=== PATIENT | female | born 1990 | race Caucasian/White ===

== ENCOUNTER 2020-07-04 08:12 | Outpatient (REF) | payer MEDICAID, SELFPAY ==
[2020-07-04 09:04] LABS: Hematocrit 38.1 % (37-47); Hemoglobin 12.2 g/dl (12.0-16.0); Mean Corpuscular Hemoglobin 26.9 pg (27.0-33.0); Mean Corpuscular Volume 83.9 fL (80-98); Mean Platelet Volume 10.8 fL (9.4-12.3); Platelet Count 298 X10*3/uL (160-400); Red Blood Count 4.54 X10*6/uL (4.20-5.50); Red Cell Distribution Width 14.7 % (11.0-16.0); White Blood Count 7.9 X10*3/uL (4.8-10.8)
[2020-07-04 09:38] LABS: Alanine Aminotransferase 28 U/L (0-31); Alkaline Phosphatase 90 U/L (39-117); Anion Gap 15 (12-20); Aspartate Amino Transferase 15 U/L (5-31); Bilirubin Total 0.3 mg/dL (0.0-1.0); Blood Urea Nitrogen 12 mg/dL (9-16); Calcium 8.8 mg/dL (8.4-10.2); Carbon Dioxide 26 mmol/L (22-29); Chloride 105 mmol/L (96-108); Cholesterol 137 mg/dL; Estimated Glomerular Filt Rate > 60; Glucose Fasting 106 mg/dL (60-99); HDL Cholesterol 41 mg/dL; LDL Cholesterol Calculated 58 mg/dl; Potassium 4.5 mmol/L (3.3-5.1); Sodium 141 mmol/L (135-145); Total Protein 6.7 g/dL (6.5-8.0); Triglycerides 194 mg/dL
== END 2020-07-04 08:13 | disposition home or self-care (01) ==
LOC: HO.LAB 08:12
PROVIDERS: Visit Provider Family Medicine
DX: R10.9 Unspecified abdominal pain (principal)
CPT/HCPCS: 36415; 80053; 80061; 85027

== ENCOUNTER 2020-07-29 20:31 | Emergency (ER) | payer OTHER, MEDICAID, SELFPAY ==
[2020-07-29 21:09] VITALS: BP 125/87; PULSE 100; RESP 18; TEMP 36.3; O2SAT 99; BMI 40.2
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
== END 2020-07-29 22:12 | disposition home or self-care (01) ==
PROVIDERS: Emergency Provider Emergency Medicine
DX: S13.4XXA Sprain of ligaments of cervical spine, initial encounter (principal); S50.11XA Contusion of right forearm, initial encounter; V43.62XA Car passenger injured in collision with other type car in traffic accident, initial encounter; Y93.89 Activity, other specified; Y92.89 Other specified places as the place of occurrence of the external cause; Y99.8 Other external cause status
CPT/HCPCS: 99283; 99284

== ENCOUNTER 2021-11-27 07:11 | Outpatient (REF) | payer MEDICAID, SELFPAY ==
[2021-11-27 07:25] LABS: MANUAL DIFF FLAG NO
[2021-11-27 07:27] LABS: Basophils Absolute Auto 0.1 X10*3/uL (0.0-0.2); Eosinophils Absolute Auto 0.2 X10*3/uL (0.0-0.4); Eosinophils Percent Auto 2.9 % (0-4); Hematocrit 37.6 % (37.0-47.0); Hemoglobin 12.1 g/dl (12.0-16.0); Imm Gran Abs Auto 0.02 X10*3/uL (0.00-0.03); Imm Gran Pct Auto 0.3 % (0.0-0.4); Lymphocytes Absolute Auto 1.6 X10*3/uL (1.2-4.9); Lymphocytes Percent Auto 22.9 % (20-40); Mean Corpuscular HGB Conc 32.2 g/dl (31.0-35.0); Mean Corpuscular Hemoglobin 26.2 pg (27.0-33.0); Mean Corpuscular Volume 81.4 fL (80.0-98.0); Mean Platelet Volume 10.7 fL (9.4-12.3); Monocytes Absolute Auto 0.6 X10*3/uL (0.1-1.2); Monocytes Percent Auto 8.2 % (2-11); Neutrophils Absolute Auto 4.5 x10*3/uL (2.0-8.3); Neutrophils Percent Auto 64.7 % (45-73); Platelet Count 303 X10*3/uL (160-400); Red Blood Count 4.62 X10*6/uL (4.20-5.50); Red Cell Distribution Width 15.2 % (11.0-16.0); White Blood Count 6.9 X10*3/uL (4.8-10.8)
[2021-11-27 07:48] LABS: Cholesterol 139 mg/dL; HDL Cholesterol 38 mg/dL; LDL Cholesterol Calculated 72 mg/dl; Triglycerides 145 mg/dL
[2021-11-27 08:06] LABS: Erythrocyte Sedimentation Rate 13 MM/HR (0-20)
[2021-11-27 08:11] LABS: TSH reflex Free T4 0.99 uIU/mL (0.32-4.0); Vitamin D 25-OH Total 23.5 ng/mL (>30)
[2021-11-30 04:06] LABS: Immunoglobulin E 145 kU/L (<OR=114)
== END 2021-11-27 07:12 | disposition home or self-care (01) ==
LOC: HO.LAB 07:11
PROVIDERS: PCP Internal Medicine; Visit Provider Internal Medicine
DX: E55.9 Vitamin D deficiency, unspecified (principal); E66.9 Obesity, unspecified; G43.009 Migraine without aura, not intractable, without status migrainosus; Z91.018 Allergy to other foods
CPT/HCPCS: 36415; 80061; 82306; 82785; 84443; 85025; 85652

== ENCOUNTER 2023-02-03 17:44 | Outpatient (REF) | payer MEDICAID, SELFPAY ==
[2023-02-03 18:29] LABS: Influenza A PCR NEGATIVE (Negative); Influenza B PCR NEGATIVE (Negative); Resp Syncy Virus RNA Qual PCR NEGATIVE (Negative); SARS COV2 PCR INHOUSE NEGATIVE (Negative)
== END 2023-02-03 17:45 | disposition home or self-care (01) ==
LOC: HO.LNP 17:44
PROVIDERS: Visit Provider Emergency Medicine
DX: Z11.52 Encounter for screening for COVID-19 (principal); R68.89 Other general symptoms and signs
CPT/HCPCS: 0241U

== ENCOUNTER 2023-08-07 10:34 | Outpatient (REF) | payer MEDICAID, SELFPAY ==
--- NOTE | ~2023-08-07 | XR_ITS ---
EXAMINATION: XR SHOULDER, RIGHT CLINICAL INFORMATION: History of atraumatic right shoulder pain COMPARISON: None available. TECHNIQUE: AP external rotation, Grashey, scapular Y, and axillary views of the right shoulder. FINDINGS: The bones and soft tissues are normal. No fracture. Glenohumeral and acromioclavicular alignment is anatomic with normal joint space. No abnormal soft tissue calcifications. XR/XR shoulder RT min 2V IMPRESSION: Normal right shoulder.
== END 2023-08-07 10:35 | disposition home or self-care (01) ==
LOC: HO.HHCX 10:34
PROVIDERS: Visit Provider Emergency Medicine
DX: M25.511 Pain in right shoulder (principal)
CPT/HCPCS: 36415; 73030; 84550; 86618

== ENCOUNTER 2023-08-07 11:40 | Outpatient (REF) | payer MEDICAID, SELFPAY ==
[2023-08-07 17:01] LABS: Uric Acid 5.8 mg/dL (2.4-5.7)
[2023-08-08 18:03] LABS: Lyme Abs Screen <0.90 index
== END 2023-08-07 11:41 | disposition home or self-care (01) ==
LOC: HO.HHCL 11:40
PROVIDERS: Visit Provider Emergency Medicine
DX: M25.511 Pain in right shoulder (principal)
CPT/HCPCS: 36415; 84550; 86617; 86618

== ENCOUNTER 2023-09-02 17:16 | Emergency (ER) | payer MEDICAID, SELFPAY ==
[2023-09-02 17:21] VITALS: BP 115/67; PULSE 99; RESP 16; TEMP 36; O2SAT 97; BMI 43.4
--- NOTE | 2023-09-02 17:33 | ED.BACK ---
HPI - Back Pain/Injury General Chief Complaint: Back Pain/Injury Stated Complaint: Back pain radiating down leg Time Seen by Provider: 09/02/23 18:30 Source: patient Mode of arrival: ambulatory Limitations: no limitations History of Present Illness ED Provider: Fatoumata Mills PA-C HPI Narrative: 33-year-old Belgian-speaking female with history of obesity, kidney stones who presents to the ER for evaluation of stabbing right-sided middle and lower back pain that started at around 3:00 o'clock today when she went to go from sitting to standing. Pain radiates down the right leg and into the right groin. Worse with movement. No urinary symptoms. No difficulty walking. No numbness or tingling of the leg. MD elicited complaint: back pain Pertinent past history: prior back pain Onset (ago): hour(s) Timing: constant Severity: moderate Similar Symptoms Previously: Yes Quality: stabbing Location: right lower back Radiation: groin and right upper leg Exacerbating factors: movement Relieving factors: sitting upright Context: other (going from sitting to standing) Associated symptoms: denies other symptoms Work related injury: No Related Data Previous Rx's ?Medication ?Instructions ?Recorded cyclobenzaprine 10 mg tablet 10 mg PO TID PRN muscle spasm #10 07/29/20 tabs ibuprofen 800 mg tablet 800 mg PO Q8H PRN pain #15 tabs 07/29/20 lidocaine 5 % topical patch 1 patch topical DAILY #15 ea 07/29/20 (Lidoderm) cyclobenzaprine 10 mg tablet 10 mg PO TID PRN muscle spasm #10 09/02/23 tabs ibuprofen 600 mg tablet 600 mg PO Q8H PRN pain #20 tabs 09/02/23 lidocaine 5 % topical patch 1 patch topical DAILY #15 ea 09/02/23 Allergies Allergy/AdvReac Type Severity Reaction Status Date / Time cetirizine [From [facility]] Allergy Blister Verified 09/02/23 17:28 kiwi Allergy Anaphylaxis Verified 09/02/23 17:28 seafood Allergy Rash Verified 09/02/23 17:28 Review of Systems Review of Systems: Yes all other systems are reviewed and are negative PMFSH Past Medical History Medical History (Updated 09/02/23 @ 18:32 by PETER Charlton) Patient denies significant medical history Social History Social History Advance Directives: No Advance Directives Information Provided: No Physical Exam Vital Signs: Vital Signs: Last Vital Signs Temp 96.8 F 09/02/23 17:21 Pulse 99 09/02/23 17:21 Resp 16 09/02/23 17:21 BP 115/67 09/02/23 17:21 Pulse Ox 97 09/02/23 17:21 O2 Del Method Room Air 09/02/23 17:21 BMI result Body Mass Index 43.4 Appearance: Alert. Oriented X3. No acute distress. HEENT: normal external inspection Neck: Normal inspection. CVS: Normal heart rate and rhythm. Pulses normal. Respiratory: No respiratory distress. Breath sounds normal. Abdomen: Soft and nontender. +BS x4 Back: soft tissue tenderness of the middle lumbar area on the right. no midline tenderness. limited spinal flexion due to pain. Skin: Skin warm and dry. Normal skin color. Normal skin turgor. No rashes. Extremities: No lower extremity edema. No joint swelling. Neuro/psych: Oriented X 3. No motor deficit. No sensory deficit. CN II-XII intact. Normal speech and cognition. Steady gait Medical Decision Making Medical Decision Making [facility] Narrative: 33-year-old Belgian-speaking female with a history kidney stones, back pain in the past, obesity who presents to the ER for evaluation of stabbing back pain on the right side that started acutely this afternoon when she went to go from sitting to standing. It radiates down the right leg into the right groin. No red flag symptoms of low back pain. No urinary symptoms. Urinalysis today is not show any blood, no . She has no UTI symptoms, doubt UTI with only small leuks. Exam is consistent with soft tissue tenderness, no midline tenderness. No need for imaging today. Will treat for musculoskeletal back pain, have her follow-up with her primary care doctor at the [facility] if no improvement. Return precautions discussed. Stable for discharge Differential Diagnosis Differential Diagnoses: The differential diagnosis associated with the presentation includes muscular strain, muscle spasm, herniated disc, UTI, kidney stone Lab Data [facility] Lab Attestation statement: I reviewed the patient's lab results. Labs: Lab Results 09/02/23 09/02/23 Range/Units 17:30 17:31 Urine Color Yellow Urine Appearance Hazy Urine pH 5.5 (5.0-9.0) Ur Specific [place] 1.025 (1.005-1.025) Urine Protein Negative (Neg-Trace) mg/dL Urine Glucose (UA) Negative (Negative) mg/dL Urine Ketones Negative (Negative) mg/dL Urine Blood Negative (Negative) Urine Nitrite Negative (Negative) Ur Leukocyte Esterase Small (1+) H (Negative) Urine RBC 0-2 (0-2) /HPF Urine WBC 0-5 (0-5) /HPF Ur Squamous Epith Cells 6-10 (0-2) /HPF Urine Bacteria 1+ (None Seen) Hyaline Casts 0-2 (0-2) /LPF Urine Test NEGATIVE (NEGATIVE) External Record Review External record reviewed: Outpatient record, Prior outpatient labs and Prior outpatient radiology Tests considered The following testing was considered but not selected: X-rays lumbar spine considered Prescription Management I considered prescription management with: Pain Medication Chronic Conditions Patient?s care impacted by: Other (Morbid obesity) Critical Care Time Critical Care Time Critical Care Time: No Discharge Plan Discharge Clinical Impression: Strain of lumbar region Patient Disposition: Home, Self-Care Instructions: Low Back Strain (ED), Lower Back Exercises (ED) Additional Instructions: Your pain is most likely due to muscle strain and spasm. No bending, lifting or twisting. Use ice several times per day for 20 minutes at a time for the next 48 hours and then change to heat. Take medications as prescribed to help with pain and discomfort. Follow up with your Primary Care Doctor this week. If your pain worsens, if you develop new numbness, tingling, weakness, loss of function or incontinence call 911 or come back to the ER right away for evaluation. Prescriptions: New ibuprofen 600 mg tablet 600 mg PO Q8H PRN (Reason: pain) Qty: 20 0RF cyclobenzaprine 10 mg tablet 10 mg PO TID PRN (Reason: muscle spasm) Qty: 10 0RF lidocaine 5 % adhesive patch,medicated 1 patch topical DAILY Qty: 15 0RF Rx Instructions: leave on most painful area for up to 12 hrs No Action cyclobenzaprine 10 mg tablet 10 mg PO TID PRN (Reason: muscle spasm) Qty: 10 0RF ibuprofen 800 mg tablet 800 mg PO Q8H PRN (Reason: pain) Qty: 15 0RF lidocaine [Lidoderm] 5 % adhesive patch,medicated 1 patch topical DAILY Qty: 15 0RF Rx Instructions: leave on most painful area for up to 12 hrs Print Language: Belgian
[2023-09-02 17:41] LABS: Color Urine Yellow; Glucose Urine UA Negative (Negative); Leukocyte Esterase Urine Small (1+) (Negative); Nitrite Urine Negative (Negative); PH 5.5 (5.0-9.0); Specific Gravity - Urine 1.025 (1.005-1.025); UMIC TRIGGER UACC YES; Urine Blood Negative (Negative); Urine Ketones Negative (Negative); Urine Protein Negative (Neg-Trace)
[2023-09-02 17:42] LABS: Appearance Urine Hazy
[2023-09-02 17:43] LABS: UPreg QC Valid YES; Urine Pregnancy NEGATIVE (NEGATIVE)
[2023-09-02 17:57] LABS: Bacteria Urine 1+ (None Seen); Hyaline Casts Urine 0-2 /LPF (0-2); RBC Urine 0-2 /HPF (0-2); UACC Culture Trigger YES; WBC Urine 0-5 /HPF (0-5)
[2023-09-02 18:32] VITALS: BP 118/76; PULSE 90; RESP 16; TEMP 36.4; O2SAT 100
== END 2023-09-02 18:34 | disposition home or self-care (01) ==
PROVIDERS: Physician Assistant; Emergency Provider Emergency Medicine
DX: S39.012A Strain of muscle, fascia and tendon of lower back, initial encounter (principal); X58.XXXA Exposure to other specified factors, initial encounter; Z87.442 Personal history of urinary calculi; Y93.9 Activity, unspecified; Y92.9 Unspecified place or not applicable; Y99.9 Unspecified external cause status
CPT/HCPCS: 81001; 81025; 87086; 99282; 99283

== ENCOUNTER 2023-09-06 09:30 | Outpatient (AMB) | payer MEDICAID, SELFPAY ==
--- NOTE | 2023-09-06 09:38 | MHC.OFFVIS ---
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 The patient describes her pain as sharp and severe in nature. She did injure her right shoulder approximately 6 months ago while lifting a heavy object. Since that time she has had difficulty lifting her right hand above shoulder height. She has tried Tylenol and anti-inflammatory medicines for the last few months which gave her minimal relief. She has also failed a home exercise program. Her symptoms have gotten worse over the last 6 weeks in spite of continued conservative treatment. 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 Name: Usman(sister) Allergies cetirizine [From [facility]] Allergy (Verified 09/06/23 09:39) Blister kiwi Allergy (Verified 09/06/23 09:39) Anaphylaxis seafood Allergy (Verified 09/06/23 09:39) Rash Medication List - Last Reconciled 09/06/23 by Henri Camacho MD cyclobenzaprine 10 mg PO TID PRN cyclobenzaprine 10 mg PO TID PRN ibuprofen 800 mg PO Q8H PRN ibuprofen 600 mg PO Q8H PRN lidocaine 5% (Lidoderm) 1 patch topical DAILY lidocaine 5% 1 patch topical DAILY PFSH Medical History (Updated 09/06/23 @ 09:54 by Henri Camacho MD) Patient denies significant medical history Physical Exam Const Other: Well-nourished well-developed very friendly female awake alert and oriented x3 in no acute distress Extrem Other: Bilateral upper extremity examination shows good capillary refill, no skin lesions noted, normal sensation light touch Right shoulder examination shows decreased range of motion when compared to her left shoulder, positive impingement signs, 4+ out of 5 strength with supraspinatus testing, tenderness over her acromioclavicular joint, no instability Results Reviewed Results Reviewed: X-rays of the patient's right shoulder show severe acromioclavicular joint narrowing, a type 2 acromion, no acute bony abnormalities Assessment & Plan Assessment & Plan (1) Right shoulder pain: Code(s): M25.511 - Pain in right shoulder Category: Medical Plan Ms. Joe Parker presents with right shoulder pain and weakness due to impingement syndrome and possible rotator cuff tearing. Thus, I will send the patient for an MRI of her right shoulder for further evaluation. I will see her back once the MRI is completed to discuss the findings and treatment options. Feel free to call me at any time should questions regarding her orthopedic management arise. Thank you very much for asking me to see this very friendly patient. I spent 22 minutes in reviewing the patient's records and imaging studies, seeing the patient and documenting in the medical record. Orders: Orders MR shoulder RT wo con 09/06/23 M25.511 - Pain in right shoulder Coding Level of Care Code New Pt Level 3 (95607) Diagnoses Right shoulder pain M25.511
== END 2023-09-06 09:52 | disposition home or self-care (01) ==
PROVIDERS: PCP Internal Medicine; Visit Provider Orthopaedic Surgery
DX: M25.511 Pain in right shoulder (principal)
CPT/HCPCS: 99203

== ENCOUNTER → 2023-09-06 09:30 | Outpatient (BNVA) | payer MEDICAID, SELFPAY | PROVIDERS: PCP Internal Medicine; Visit Provider Orthopaedic Surgery | DX: M25.511 Pain in right shoulder (principal) | CPT/HCPCS: 99202 ==

== ENCOUNTER 2023-11-21 15:13 | Outpatient (AMB) | payer MEDICAID, SELFPAY ==
--- NOTE | 2023-11-21 15:18 | MHC.OFFVIS ---
Vital Signs 11/21/23 15:21 Height 5 ft 1 in Weight 229 lb BMI 43.3 Intake Visit Reasons: MRI review of Rt Shoulder Intake Note: Maria T a 33 year old female who presents with complaints of right shoulder pain. She describes her pain as sharp in nature. Most of the pain is along the lateral and superior aspects of her shoulder. She reports mild weakness when lifting her right hand above shoulder height. She has tried Tylenol and anti-inflammatory medicines which gave her minimal relief. She would like to hold off on surgery if at all possible. Transit Mix Operator Name: Jania ID#[id number] Allergies cetirizine [From [facility]] Allergy (Verified 11/21/23 15:22) Blister kiwi Allergy (Verified 11/21/23 15:22) Anaphylaxis seafood Allergy (Verified 11/21/23 15:22) Rash Medication List - Last Reconciled 11/22/23 by Henri Camacho MD lidocaine 5% 1 patch topical DAILY [facility] Medical History (Updated 11/21/23 @ 15:34 by Henri Camacho MD) Patient denies significant medical history Physical Exam Vital Signs: BMI result Body Mass Index 43.3 Const Other: Well-nourished well-developed very friendly female awake alert and oriented x3 in no acute distress Extrem Other: Bilateral upper extremity examination shows good capillary refill, no skin lesions noted, normal sensation light touch Right shoulder examination shows slightly decreased range of motion when compared to her left shoulder, 4+ out of 5 strength with supraspinatus testing, positive impingement signs, tenderness over her acromioclavicular joint, no instability Results Reviewed Results Reviewed: MRI of the patient's right shoulder show severe acromioclavicular joint narrowing, a type 2 acromion, signal change within the supraspinatus tendon most likely due to rotator cuff tendinosis Assessment & Plan Assessment & Plan (1) Impingement of right shoulder: Code(s): M25.811 - Other specified joint disorders, right shoulder Category: Medical Plan Ms. Joe Parker presents with right shoulder pain due to impingement syndrome and acromioclavicular joint arthritis. I had a lengthy discussion with the patient regarding the treatment options. She wishes to hold off on surgery for as long as possible. I agree with this plan. I did give the patient a prescription to go to formal physical therapy. The do's and don'ts of lifting were discussed at length with the patient. She will follow up with me on an as-needed basis should her symptoms not plateau at an unacceptable level over the next few months. Feel free to call me at any time should questions regarding her orthopedic management arise. I spent 20 minutes in reviewing the patient's records and imaging studies, seeing the patient and documenting in the medical record. Orders: Orders PT Evaluation and Treatment 11/21/23 M25.811 - Other specified joint disorders, right shoulder Coding Level of Care Code Est Pt Level 3 (09485) Complex EM visit Add On G2211 Diagnoses Impingement of right shoulder M25.811
[2023-11-21 15:21] VITALS: BMI 43.3
== END 2023-11-21 15:33 | disposition home or self-care (01) ==
PROVIDERS: PCP Internal Medicine; Referring Provider Internal Medicine; Visit Provider Orthopaedic Surgery
DX: M25.811 Other specified joint disorders, right shoulder (principal)
CPT/HCPCS: 99213

== ENCOUNTER → 2023-11-21 15:13 | Outpatient (BNVA) | payer MEDICAID, SELFPAY | PROVIDERS: PCP Internal Medicine; Visit Provider Orthopaedic Surgery | DX: M25.811 Other specified joint disorders, right shoulder (principal) | CPT/HCPCS: 99212 ==

== ENCOUNTER 2024-01-15 10:00 | Outpatient (RCR) | payer MEDICAID, SELFPAY ==
--- NOTE | 2023-12-07 14:00 | MHC.PT.EP ---
[facility] [place] Office [place] Office [place] Office [address] Heather Carter [address] [phone] F: [phone] F: [phone] F: [phone] F: [phone] Physical Therapy Plan of Care Date of Evaluation: 12/07/23 Date of Surgery: Diagnosis: R shoulder pain Assessment: 33 y/o R-hand dominant female referred to PT with R shoulder pain. MRI shows severe acromioclavicular joint narrowing, a type 2 acromion, signal change within the supraspinatus tendon most likely due to rotator cuff tendinosis. Currently pain and difficulty with reaching, carrying, lifting, grooming, dressing, and sleeping on R side. Examination shows decreased R shoulder strength/ ROM, increased pain, TTP upper trap/ levator/supraspinatus, and impaired postural awareness. Frequency and Duration: The patient will be seen 2x/week for 6 weeks Short Term Goals: 3 weeks I with HEP Improve active flexion to 120 to faciliate grooming [facility] Goals: 6 weeks I with HEP and self management of sx Pt will be able to reach into overhead shelves with pain < 3/10 Pt will be able to dress with pain < 3/10 Treatment Plan: Modalities to reduce pain, spasms and effusion. Manual therapy to restore motion and function. Therapeutic exercise to improve strength and flexibility. Neuromuscular re-education for posture and balance. Therapeutic activities to return to functional activities of daily living. Electronically signed by: Elana Roberson PT Please sign and return to therapist. Thank you for your referral.
--- NOTE | 2024-02-13 13:37 | MHC.PT.DC ---
[facility] [place] Office [place] Office [place] Office [address] Heather Carter [address] [phone] F: [phone] F: [phone] F: [phone] F: [phone] Physical Therapy Discharge Report Diagnosis: R shoulder pain Date of Surgery: Date of Evaluation: 12/07/23 Date of Discharge: 02/13/24 Treatments to Date: 9 Cancellations to Date: 0 No Shows to Date: 0 Discharge Status: Improved Function Independent with HEP Discharge Summary: Pt with decreased pain and improved mobility. At time of last visit, she had no pain with box lifts. She did not f/u with last visit. D/c to I HEP. Electronically signed by: Elana andrew PT Please sign and return to therapist. Thank you for your referral.
== END 2024-02-13 13:37 | disposition home or self-care (01) ==
LOC: HO.PT 10:00
PROVIDERS: Visit Provider Orthopaedic Surgery
DX: M25.811 Other specified joint disorders, right shoulder (principal)
CPT/HCPCS: 97110; 97161; 97530

== ENCOUNTER 2024-01-23 09:38 | Outpatient (AMB) | payer MEDICAID, SELFPAY ==
--- NOTE | 2024-01-23 09:44 | MHC.OFFVIS ---
Vital Signs 01/23/24 09:48 Height 5 ft 1 in Weight 229 lb BMI 43.3 Intake Visit Reasons: Right shoulder pain and weakness Intake Note: Maria T a 33 year old female who presents with complaints of progressively worsening right shoulder pain and weakness. The patient describes her pain as sharp and severe in nature. Most of the pain is along the lateral aspect of her right shoulder. She did injure her right shoulder approximately 1 year ago while lifting a heavy object. The patient's symptoms have gotten worse since her last 2 visits. She has failed the last 6 weeks of conservative treatment. She has been going to formal physical therapy which aggravated her pain. She has also tried Tylenol and anti-inflammatory medicines as well as lidocaine topical patches which gave her minimal relief. Allergies cetirizine [From [facility]] Allergy (Verified 01/23/24 09:50) Blister kiwi Allergy (Verified 01/23/24 09:50) Anaphylaxis seafood Allergy (Verified 01/23/24 09:50) Rash Medication List - Last Reconciled 01/23/24 by Henri Camacho MD lidocaine 5% 1 patch topical DAILY [facility] Medical History (Updated 11/21/23 @ 15:34 by Henri Camacho MD) Patient denies significant medical history Physical Exam Const Other: Well-nourished well-developed very friendly female awake alert and oriented x3 in no acute distress Extrem Other: Bilateral upper extremity examination shows good capillary refill, no skin lesions noted, normal sensation light touch Right shoulder examination shows decreased range of motion when compared to her left shoulder, 4+ out of 5 strength with supraspinatus testing, positive impingement signs, tenderness over her acromioclavicular joint, no instability Results Reviewed Results Reviewed: X-rays of the patient's right shoulder taken previously show severe acromioclavicular joint narrowing, a type 2 acromion, no acute bony abnormalities Assessment & Plan Assessment & Plan (1) Right shoulder pain: Code(s): M25.511 - Pain in right shoulder Category: Medical Plan Maria T presents with progressively worsening right shoulder pain and weakness due to impingement syndrome and possible rotator cuff tearing. I will send the patient for an MRI of her right shoulder for further evaluation. I will see her back once the MRI is completed to discuss the findings and treatment options. Feel free to call me at any time should questions regarding her orthopedic management arise. I spent 20 minutes in reviewing the patient's records and imaging studies, seeing the patient and documenting in the medical record. Orders: Orders MR shoulder RT wo con Today M25.511 - Pain in right shoulder Coding Level of Care Code Est Pt Level 3 (08699) Complex EM visit Add On G2211 Diagnoses Right shoulder pain M25.511
[2024-01-23 09:48] VITALS: BMI 43.3
== END 2024-01-23 09:51 | disposition home or self-care (01) ==
LOC: HO.HOS 09:39
PROVIDERS: PCP Internal Medicine; Visit Provider Orthopaedic Surgery
DX: M25.511 Pain in right shoulder (principal)
CPT/HCPCS: 99213

== ENCOUNTER → 2024-01-23 09:38 | Outpatient (BNVA) | payer MEDICAID, SELFPAY | PROVIDERS: PCP Internal Medicine; Visit Provider Orthopaedic Surgery | DX: M25.511 Pain in right shoulder (principal) | CPT/HCPCS: 99212 ==

== ENCOUNTER 2024-02-13 17:15 | Outpatient (REF) | payer MEDICAID, SELFPAY ==
--- NOTE | ~2024-02-13 | MR_ITS ---
EXAMINATION: MR SHOULDER WITHOUT CONTRAST, RIGHT CLINICAL INFORMATION: Right shoulder pain COMPARISON: Radiograph dated 08/07/2023 TECHNIQUE: MRI of the shoulder without contrast was performed on a high-field scanner. FINDINGS: ROTATOR CUFF: Minimal supraspinatus and subscapularis tendinosis. No tears. No muscle atrophy or fatty infiltration. BICEPS: Normal. CORACOACROMIAL ARCH: The undersurface of the acromion is curved with no subacromial spur. Mild acromioclavicular osteoarthritis. Focal subcortical edema and cystic change distal clavicle is consistent with mild distal clavicular osteolysis. AC joint capsule is thickened and edematous. No subacromial subdeltoid bursitis. LABRUM/CAPSULE: Diminutive posterior labrum is likely due to developmental. Articular sided fraying is suspected at the superior labrum without discrete tear. The anteroinferior glenoid labrum is ill-defined between the anteroinferior 4 o'clock position and 5 o'clock position with loss of labral tissue and fraying, likely correspond to a chronic focal labral tear. GLENOHUMERAL JOINT/MARROW: Articular cartilage appears well preserved. No fracture or malalignment. Bone marrow signal is normal. No joint effusion. MR/MR shoulder RT wo con IMPRESSION: 1. Mild acromioclavicular osteoarthritis with significant periarticular edema and mild distal clavicular osteolysis. 2. Minimal supraspinatus and subscapularis tendinosis. No rotator cuff tears. 3. Probable small focal tear of the anteroinferior glenoid labrum. Electronically signed by: Neftali Martini MD 02/18/2024 11:39 PM [facility]
== END 2024-02-13 17:16 | disposition home or self-care (01) ==
LOC: HO.MRI 17:15
PROVIDERS: PCP Internal Medicine; Visit Provider Orthopaedic Surgery
DX: M25.511 Pain in right shoulder (principal)
CPT/HCPCS: 73221

== ENCOUNTER 2024-03-26 14:25 | Outpatient (AMB) | payer MEDICAID, SELFPAY ==
--- NOTE | 2024-03-26 14:28 | A.OFFVIS_ITS ---
Vital Signs 03/26/24 14:29 Height 5 ft 1 in Weight 229 lb BMI 43.3 Intake Visit Reasons: OV- Right shoulder MRI Review Intake Note: Maria T a 33 year old female who presents with complaints of progressively worsening right shoulder pain and stiffness. The patient describes her pain as sharp and severe in nature. Most of the pain is along the lateral aspect of her right s houlder. She did injure her right shoulder approximately 1 year ago while lifting a heavy object. The patient's symptoms have gotten worse over the last year. She has failed the last 6 weeks of conservative treatment. She has been going to formal physical therapy which aggravated her pain. She has also tried Tylenol and anti-inflammatory medicines as well as lidocaine topical patches which gave her minimal relief. She reports difficulty lifting her right hand above shoulder height. Contract Administration Manager Required: No Allergies cetirizine [From [facility]] Allergy (Verified 03/26/24 14:29) Blister kiwi Allergy (Verified 03/26/24 14:29) Anaphylaxis seafood Allergy (Verified 03/26/24 14:29) Rash Medication List - Last Reconciled 03/26/24 by Henri Camacho MD lidocaine 5% 1 patch topical DAILY FOR[facility]LY [facility] Medical History Patient denies significant medical history Physical Exam Vital Signs: BMI result Body Mass Index 43.3 Const Other: Well-nourished well-developed very friendly female awake alert and oriented x3 in no acute distress Extrem Other: Bilateral upper extremity examination shows good capillary refill, no skin lesions noted, normal sensation light touch Right shoulder examination shows decreased range of motion when compared to her left shoulder, 4+ out of 5 strength with supraspinatus testing, positive impingement signs, tenderness over her acromioclavicular joint, no instability Results Reviewed Results Reviewed: MRI of the patient's right shoulder show severe acromioclavicular joint narrowi ng, a type 3 acromion, signal change within the supraspinatus tendon most likely due to adhesive capsulitis Assessment & Plan Assessment & Plan (1) Impingement of right shoulder: Code(s): M25.811 - Other specified joint disorders, right shoulder Category: Medical Plan Ms. Joe Parker presents with progressively worsening right shoulder pain and stiffness due to impingement syndrome, acromioclavicular joint arthritis and adhesive capsulitis. I had a lengthy discussion with the patient regarding the treatment options. At this point the patient appears to be failing non operative treatments. She is considering undergoing right shoulder surgery later this year. She will contact my office to pick a surgery date if she chooses to do so. Surgery would likely involve right shoulder diagnostic arthro scopy with distal clavicle excision, acromioplasty, capsular release and manipulation under anesthesia. The patient will continue with her [id number] exercises in the meantime. Feel free to call me at any time should questions regarding her orthopedic management arise. I spent 21 minutes in reviewing the patient's records and imaging studies, seeing the patient and documenting in the medical record. Coding Level of Care Code Est Pt Level 3 (12465) Complex EM visit Add On G2211 Diagnoses Impingement of right shoulder M25.811
[2024-03-26 14:29] VITALS: BMI 43.3
== END 2024-03-26 14:55 | disposition home or self-care (01) ==
PROVIDERS: PCP Internal Medicine; Visit Provider Orthopaedic Surgery
DX: M25.811 Other specified joint disorders, right shoulder (principal)
CPT/HCPCS: 99213

== ENCOUNTER → 2024-03-26 14:25 | Outpatient (BNVA) | payer MEDICAID, SELFPAY | PROVIDERS: PCP Internal Medicine; Visit Provider Orthopaedic Surgery | DX: M25.811 Other specified joint disorders, right shoulder (principal) | CPT/HCPCS: 99212 ==

== ENCOUNTER 2024-04-04 12:31 | Outpatient (AMB) | payer MEDICAID, SELFPAY ==
[2024-04-04 12:37] VITALS: BMI 47.0
--- NOTE | 2024-04-04 12:37 | MHC.OFFVIS ---
Vital Signs 04/04/24 12:37 Height 5 ft 1 in Weight 249 lb BMI 47.0 Intake Visit Reasons: cyst on scalp Intake Note: This patient presents for cyst on scalp. Pt co; she feel a lump on her scalp, will like excision, reports discomfort. Control Panel Operator Required: Yes Control Panel Operator Language: Industrial Editor Services: Control Panel Operator Present Control Panel Operator Name: Ligia Information Interpreted: non-clinical & clinical Accompanied by: Spouse Allergies cetirizine [From [facility]] Allergy (Verified 04/04/24 12:45) Blister kiwi Allergy (Verified 04/04/24 12:45) Anaphylaxis seafood Allergy (Verified 04/04/24 12:45) Rash Medication List - Last Reconciled 04/04/24 by Doc Gilbert MD lidocaine 5% 1 patch topical DAILY HPI HPI cyst on scalp: Details: 33 year female referred for a cyst on the scalp. She says she has had this for about 10 years. This has been increasing in size. This has been giving her more discomfort and pain because of the increased in size. She denies any drainage. She denies redness. [facility] Medical History (Updated 04/04/24 @ 13:46 by Doc Gilbert MD) Scalp cyst Morbid obesity Patient denies significant medical history Surgical History No pertinent past surgical history Social History Alcohol intake: never Patient Tobacco Use Status: Never used Tobacco Review of Systems Const Denies chills and Denies fever(s) Card Denies chest pain, Denies dyspnea and Denies dyspnea on exertion Resp Denies cough, Denies dyspnea and Denies dyspnea on exertion GI Denies hematochezia and Denies change in bowel habits Denies hematuria Musc Denies back pain and Denies limited range of motion Neuro Denies focal weakness and Denies convulsions Psych Denies depression and Denies mood swings Physical Exam Vital Signs: BMI result Body Mass Index 47.0 Const Other: Morbidly obese General: comfortable and no acute distress Orientation/consciousness: patient oriented x3 HEENT Other: Scalp cyst on the parietal area, about 2.3 cm in diameter, well-defined Neck Neck: Yes no lymphadenopathy Resp Auscultation: clear to auscultation bilaterally Cardio Rhythm: regular rhythm GI Palpation (GI): Soft to palpation, nontender and no guarding Neuro General: patient oriented x3 Assessment & Plan Assessment & Plan (1) Scalp cyst: Code(s): L72.9 - Follicular cyst of the skin and subcutaneous tissue, unspecified Category: Medical Plan: She wants this excised because of discomfort with increased in size. I explained the technique of excision under local anesthesia. I reviewed the risks including but not limited to bleeding and infections, as well as the benefits and alternatives. I reviewed with her what to expect postoperatively. She has given consent She will be scheduled for excision under local anesthesia in the office on her next visit Coding Level of Care Code New Pt Level 3 (56829) Diagnoses Scalp cyst L72.9
== END 2024-04-04 13:49 | disposition home or self-care (01) ==
PROVIDERS: PCP Internal Medicine; Visit Provider Surgery
DX: L72.9 Follicular cyst of the skin and subcutaneous tissue, unspecified (principal)
CPT/HCPCS: 99203

== ENCOUNTER → 2024-04-04 12:31 | Outpatient (BNVA) | payer MEDICAID, SELFPAY | PROVIDERS: PCP Internal Medicine; Visit Provider Surgery | DX: L72.9 Follicular cyst of the skin and subcutaneous tissue, unspecified (principal) | CPT/HCPCS: 99202 ==

== ENCOUNTER 2024-04-11 14:25 | Outpatient (REF) | payer MEDICAID, SELFPAY ==
--- OUTSIDE RECORDS SUMMARY | 2024-04-11 18:16 | XMS_ITS | Encounter Summary ---
Demographics Address [address] [place] [address] Mobile Phone Home Phone Email Address Preferred Language es Marital Status Single Rastafarian Affiliation Unknown Race White Ethnic Group or Author Organization [employer] Address [address] [place] [address] [address] [place] [address] Support Name Relationship Address Phone Himanshu Small Spouse [address] [place] [address] Care Team Providers Care Road Service Locksmith Name Role Phone Tracy Storey MD Primary Care Provider + Encounter Details Date Type Department Care Team (Late st Contact Info) Description 04/14/2022 Telephone [facility] [address] [place] [address] Tracy Storey MD [address] [place] [address] Social History Tobacco Use Types Packs/Day Years Used Date Smoking Tobacco: Never Assessed Comments Unknown Sex and Gender Information Value Date Recorded Sex Assigned at Female 01/17/2022 10:36 AM EDT Legal Sex Female 10:36 AM EDT Gender Identity Female 01/17/2022 10:36 AM EDT Sexual Orientation Straight 01/17/2022 10 :36 AM EDT documented as of this encounter Plan of Treatment Not on file documented as of this encounter Visit Diagnoses Not on filedocumented in this encounter Care Teams Road Service Locksmith Relationship Specialty Start Date End Date Tracy Storey MD [address] [place], [place] [phone] PCP - General Family Medicine 03/01/19 documented as of this encounter
--- OUTSIDE RECORDS SUMMARY | 2024-04-11 18:16 | XMS_ITS | Encounter Summary ---
Demographics Address [address] [place] [address] Mobile Phone Home Phone Email Address Preferred Language es Marital Status Single Judaism Affiliation Unknown Race White Ethnic Group or Author Organization [employer] Address [address] [place] [address] Support Name Relationship Address Phone Himanshu Small Spouse [address] [place] [address] Care Team Providers Care Geriatric Psychiatrist Name Role Phone Tracy Storey MD Primary Care Provider + Encounter Details Date Type Department Care Team (Late st Contact Info) Description 03/28/2024 Telephone [facility] [address] [place] [address] Tracy Storey MD [address] [place] [address] Social History Tobacco Use Types Packs/Day Years Used Date Smoking Tobacco: Never Smokeless Tobacco: Never Alcohol Use Standard Drinks/Week Comments Never 0 (1 standard drink = 0.6 oz pur e alcohol) Housing Stability Answer Date Recorded What is your housing situation today? I have scott arvizu 12/13/[address] you li ve. Do you have problems with any of the following? None of the above 12/13/2023 Food Insecurity Answer Date Recorded Within the past 12 months, y ou worried that your food would run out before you got money to buy more: Never True 12/13/2023 Within the past 12 months,th e food you bought just didn't last and you didn't have enough money to get more: Never True Transportation Answer Date Recorded In the past 12 months, has l ack of transportation kept you from medical appts, meetings, work or from getting things needed for daily living? No 12/13/2023 Utilities Answer Date Recorded In the past 12 months, has t he electric, gas, oil or water company threatened to shut off services in your home? No 12/13/2023 Internet Access Answer Date Recorded Internet Access Q1 Yes 12/13/2023 Internet Access Q2 Not on file 12/13/2023 Comments Unknown Sex and Gender Information Value [...] on filedocumented in this encounter Care Teams Geriatric Psychiatrist Relationship Specialty Start Date End Date Tracy Storey MD [address] [place] [id number] PCP - General Family Medicine 03/01/19 documented as of this encounter
--- OUTSIDE RECORDS SUMMARY | 2024-04-11 18:16 | XMS_ITS | Encounter Summary ---
Demographics Address [address] [place] [address] Mobile Phone Home Phone Email Address Preferred Language es Marital Status Single Sikhism Affiliation Unknown Race White Ethnic Group or Author Organization [employer] Address [address] [place] [address] [address] [place] [address] Support Name Relationship Address Phone Himanshu Small Spouse [address] [place] [address] Care Team Providers Care Deputy Commonwealth'S Attorney Name Role Phone Tracy Storey MD Primary Care Provider + Reason for Visit * Reason Comments Med Refill Encounter Details Date Type Department Care Team ([facility] st Contact Info) Description 06/28/2022 Refill [facility] [address] [place] [address] Tracy Storey MD [address] [place] [address] Dysfunction of right eustachian tube Social History Tobacco Use Types Packs/Day Years Used Date Smoking Tobacco: Never Smokeless Tobacco: Never Comments Unknown Sex and Gender Information Value Date Recorded Sex Assigned at Female 01/17/2022 10:36 AM EDT Legal Sex Female 10:36 AM EDT Gender Identity Female 01/17/2022 10:36 AM EDT Sexual Orientation Straight 01/17/2022 10 :36 AM EDT COVID-19 Exposure Response Date Recorded In the last 10 days, have yo u been in contact with someone who was confirmed or suspected to have Coronavirus/COVID-19? No / Unsure 2022 11:31 AM EDT documented as of this encounter Plan of Treatment Not on file documented as of this encounter Visit Diagnoses Diagnosis Dysfunction of right eustachian tube documented in this encounter Care Teams Deputy Commonwealth'S Attorney Relationship Specialty Start Date End Date Tracy Storey MD [address] [place] [address] PCP - General Family Medicine 03/01/19 documented as of this encounter
--- OUTSIDE RECORDS SUMMARY | 2024-04-11 18:16 | XMS_ITS | Encounter Summary ---
Demographics Address [address] [place] [address] Mobile Phone Home Phone Email Address Preferred Language es Marital Status Single Jain Affiliation Unknown Race White Ethnic Group or Author Organization [employer] Address [address] [place] [address] Support Name Relationship Address Phone Himanshu Small Spouse [address] [facility] [address] [place] [address] Care Team Providers Care Policy Service Coordinator Name Role Phone Tracy Storey MD Primary Care Provider + Reason for Referral * Consultation (Routine) - Closed Specialty Diagnoses / Procedures Referred By Juan stringer Referred To Contact General Surgery Diagnoses Dermoid cyst of scalp Tracy Storey MD [address] [place] [address] Phone: tel: fax: [facility] General Surgeons [address] Floor [place], [place] Phone: tel: fax: Referral ID Status Reason Start Date Expiration Date V isits Requested Visits Authorized [id number] Closed Specialty Services Required 03/28/2024 03/28/2025 12 12 Encounter Details Date Type Department Care Team (Late st Contact Info) Description 03/27/2024 Orders Only [facility] [address] [place] [address] Tracy Storey MD [address] [place], [place] [phone] Dermoid cyst of scalp (Primary Dx) Social History Tobacco Use Types Packs/Day Years Used Date Smoking Tobacco: Never Smokeless Tobacco: Never Alcohol Use Standard Drinks/Week Comments Never 0 (1 standard drink = 0.6 oz pur e alcohol) Housing Stability Answer Date Recorded What is your housing situation today? I have scott sing 12/13/[address] you li [...] AM EDT documented as of this encounter Progress Notes * Tracy Storey MD - 03/27/2024 3:16 PM EST New referral to gral surgery for scalp cyst sent, see note on 01/16/24 documented in this encounter Plan of Treatment Scheduled Referrals Name Type Priority Associated Diagnoses Orde r Schedule Referral to General Surgery Outpatient Referral Routine Dermoid cyst of scalp Expected: 03/27/2024 (Approximate), Expires: 03/27/2025 documented as of this encounter Visit Diagnoses Diagnosis Dermoid cyst of scalp- Primary Benign neoplasm of scalp and skin of neck documented in this encounter Care Teams Policy Service Coordinator Relationship Specialty Start Date End Date Tracy Storey MD [address] [place] [id number] PCP - General Family Medicine 03/01/19 documented as of this encounter
--- OUTSIDE RECORDS SUMMARY | 2024-04-11 18:16 | XMS_ITS | Encounter Summary ---
Demographics Address [address] [place] [address] Mobile Phone Home Phone Email Address Preferred Language es Marital Status Single Scientologist Affiliation Unknown Race White Ethnic Group or Author Organization [employer] Address [address] [place] [address] Support Name Relationship Address Phone Himanshu Small Spouse [address] [place] [address] Care Team Providers Care Breaker Hand Name Role Phone Tracy Storey MD Primary Care Provider + Encounter Details Date Type Department Care Team (Late st Contact Info) Description 01/03/2024 Orders Only [facility] [address] [place] [address] Anthony Stearns MD [address] [place] [address] Social History Tobacco Use Types Packs/Day Years [...] on filedocumented in this encounter Care Teams Breaker Hand Relationship Specialty Start Date End Date Tracy Storey MD [address] [place] [address] PCP - General Family Medicine 03/01/19 documented as of this encounter
== END 2024-04-11 14:26 | disposition home or self-care (01) ==
LOC: HO.LNP 14:25
PROVIDERS: PCP Internal Medicine; Visit Provider Surgery
DX: L72.11 Pilar cyst (principal)
CPT/HCPCS: 11423; 88304

== ENCOUNTER 2024-04-11 14:25 | Outpatient (AMB) | payer MEDICAID, SELFPAY ==
--- NOTE | 2024-04-11 14:41 | A.OFFVIS_ITS ---
Intake Visit Reasons: Excision Scalp cyst Intake Note: Office procedure: Excision scalp cyst Laborer Stores Required: Yes Laborer Stores Language: [employer] Services: Laborer Stores Present Laborer Stores Name: Ligia Information Interpreted: non-clinical & clinical Accompanied by: Spouse Allergies cetirizine [From [facility]] Allergy (Verified 04/11/24 14:46) Blister kiwi Allergy (Verified 04/11/24 14:46) Anaphylaxis seafood Allergy (Verified 04/11/24 14:46) Rash HPI HPI Excision Scalp cyst: Details: She is here for excision of a scalp cyst. [facility]LY [facility] Medical History Scalp cyst Morbid obesity Patient denies significant medical history Surgical History No pertinent past surgical history Social History Alcohol intake: never Patient Tobacco Use Status: Never used Tobacco Office Procedures Excision Details: She was in reclining position. The area of the cyst on the distal aspect of the scalp was prepped and draped. Lidocaine 1% was used for local anesthesia. I ma de an incision on the skin overlying this cyst with a blade 15. This carried down through the full-thickness of the skin and subcutaneous fat until the cyst capsule was visualized. I sharply dissected the cyst capsule off of the rest of the subcutaneous layer with Metzenbaum scissors until this was delivered. This measured about 2.1 cm. This was sent as a specimen I closed the incision with full-thickness nylon 3-0 simple interrupted sutures. Dressings were applied. The procedure was completed. She tolerated procedure well. There were no immediate complications. She was given wound care instructions. [id number] scalp/neck/hands/feet/genitalia 2.1cm-3cm Procedure code (CPT) selection complete Assessment & Plan Assessment & Plan (1) Scalp cyst: Code(s): L72.9 - Follicular cyst of the skin and subcutaneous tissue, unspecified Category: Medical Plan: Excision was done in the office. She was given wound care instructions and will be seen in the office for removal of sutures. Coding Level of Care Code Procedure Only Diagnoses Scalp cyst L72.9 CPT Codes Scalp/Neck/Hands/Feet/Genetalia - CPT: 72638-Pwqikqsc scalp/neck/hands/feet/genitalia 2.1cm-3cm ([id number])
== END 2024-04-11 15:23 | disposition home or self-care (01) ==
PROVIDERS: PCP Internal Medicine; Visit Provider Surgery
DX: L72.11 Pilar cyst (principal)
CPT/HCPCS: 11423

== ENCOUNTER 2024-04-24 11:13 | Emergency (ER) | payer MEDICAID, SELFPAY ==
--- NOTE | ~2024-04-24 | XR_ITS ---
EXAMINATION: XR CHEST CLINICAL INFORMATION: cough, chest pain COMPARISON: None available. TECHNIQUE: 2 views of the chest were obtained. FINDINGS: The cardiac, hilar, and mediastinal contours are normal. The lungs are clear bilaterally. There is no pneumothorax or pleural effusion. There is no focal osseous or soft tissue abnormality. XR/XR chest 2V IMPRESSION: Normal chest. Electronically signed by: Neftali Jennings MD 04/24/2024 12:35 PM [facility]
[2024-04-24 11:35] VITALS: BP 100/69; PULSE 110; RESP 20; TEMP 36.7; O2SAT 97; BMI 46.1
--- NOTE | 2024-04-24 11:37 | ECG_ITS ---
Test Reason : CHEST PAIN Blood Pressure : */* mmHG Vent. Rate : 112 BPM Atrial Rate : 112 BPM P-R Int : 142 ms QRS Dur : 72 ms QT Int : 310 ms P-R-T Axes : 38 12 5 degrees QTcB Int : 423 ms Sinus tachycardia Otherwise normal ECG No previous ECGs available Referred By: Kelli Hayden Electronically Signed By: Dmitri Cook
--- NOTE | 2024-04-24 11:43 | ED_ITS ---
HPI - URI/Sore Throat General Chief Complaint: Upper Respiratory Symptoms Stated Complaint: congestion, headache Time Seen by Provider: 04/24/24 16:10 Source: patient and pourer (mosotho) Mode of arrival: ambulatory Limitations: language barrier (mosotho) History of Present Illness ED Provider: MIKE HAYDEN PA-C HPI Narrative: 33 year old [place] Islander speaking female presents to the ED today for evaluation of dry cough, right sided chest pain on coughing, headache, sore throat, generalized weakness and left ear pain x2 days. Denies fever, chills. No known sick contacts. Related Data Previous Rx's ?Medication ?Instructions ?Recorded lidocaine 5 % topical patch 1 patch topical DAILY #15 ea 09/02/23 guaifenesin 200 mg tablet 200 mg PO TID PRN cough #10 tabs 04/24/24 ondansetron 4 mg disintegrating 4 mg PO DAILY PRN nausea and 04/24/24 tablet vomiting 5 days #10 tabs Allergies Allergy/AdvReac Type Severity Reaction Status Date / Time cetirizine [From [facility]] Allergy Blister Verified 04/24/24 11:38 kiwi Allergy Anaphylaxis Verified 04/24/24 11:38 seafood Allergy Rash Verified 04/24/24 11:38 Review of Systems 2 Review of Systems: Yes all other systems are reviewed and are negative PMFSH Past Medical History Attestation statement: The following information was validated with the patient. Source: old records reviewed and nursing notes reviewed Medical History Scalp cyst Morbid obesity Patient denies significant medical history Surgical History No pertinent past surgical history Social History Social History Alcohol intake: never Patient Tobacco Use Status: Never used Tobacco Advance Directives: No Advance Directives Information Provided: No Do you have a plan to hurt others: No Plan Physical Exam 2 Vital Signs: Vital Signs: Last Vital Signs Temp 99.6 F 04/24/24 16:12 Pulse 113 H 04/24/24 16:12 Resp 20 04/24/24 16:12 BP 116/75 04/24/24 16:12 Pulse Ox 99 04/24/24 16:12 O2 Del Method Room Air 04/24/24 16:12 BMI result Body Mass Index 46.1 Slightly tachycardic, low grade temp of 99.6F General: Well appearing, in no acute distress. Skin: Warm, dry, intact. No rashes or lesions. Head: Normocephalic, atraumatic. EENT: Hearing is intact b/l. Conjunctiva clear. PERRLA. EOM intact. Moist mucous membranes.? Posterior oropharynx without erythema or edema. No tonsillar exudates. No peritonsillar masses. Uvula midline. Controlling secretions and speaking complete sentences. Bilateral TMs intact without erythema, effusion. No mastoid tenderness. Neck: Supple without LAD Cardiac: Chest wall symmetric. RRR Lungs: Normal respiratory effort without accessory muscle use. CTA bilaterally. No rhonchi or wheezes. Abdomen: Soft, non-tender, non-distended. No rebound tenderness or guarding. Positive BS x4. Ext: Upper and lower extremities atraumatic, without tenderness, deformity, swelling or erythema Neuro: AOx3. Normal speech. Ambulating with steady gait. Psych: Appropriate mood and affect. Responds appropriately to questions. Course Course Course Narrative: This is a Rapid Medical Examination (RME) performed by Mei Hayden PA-C in triage. Full HPI, ROS, assessment and treatment plan per primary provider in the Main ED. 33 yo female here for eval of cough, right sided chest pain, headache, sore throat, generalized weakness, left ear pain. Plan: labs, ekg, viral/strep swabs, cxr Reevaluation(s) Reevaluation #1: Patient tested positive for influenza A. Negative for COVID, RSV, strep throat. CBC without leukocytosis. H and H around baseline. Chemistry without acute electrolyte abnormality requiring intervention. No MITCH. Liver function WNL. Troponin undetectable. Beta HCG undetectable. Not . Chest x-ray does not demonstrate focal consolidation or infiltrate. EKG showing sinus tachycardia at a rate of 112 beats per minute, QT 310, QTC 423, no acute ischemic changes or ST elevations. > discussed all workup results with patient. Educated on symptomatic treatment. Will send Zofran to pharmacy for nausea. Guaifenesin sent for cough. Advised Tylenol/Motrin at home for fevers or body aches. Patient has remained stable throughout ED visit today. Discussed worrisome signs and symptoms and when to return to the ED. All questions answered at this time. Patient is agreeable with disposition and stable for discharge. Medical Decision Making Medical Decision Making [facility] Narrative: 33 year old [place]er speaking female presents to the ED today for evaluation of dry cough, right sided chest pain on coughing, headache, sore throat, generalized weakness and left ear pain x2 days. Patient tachycardic with low- grade fever. vitals otherwise wnl. she is nontoxic appearing and in NAD. on exam, differential diagnosis includes viral syndrome, strep throat, bronchitis, pneumonia, otitis media, otitis externa, costochondritis. 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 Plan for basic labs, trop, EKG, chest x-ray, viral/strep swabs, re-evaluation. Differential Diagnosis Differential Diagnoses: The differential diagnosis associated with the presentation includes as above. Admission/Observation not indicated. Lab Data [facility] Lab Attestation statement: I reviewed the patient's lab results. as above. 04/24/24 12:06 04/24/24 12:06 Labs: Lab Results 04/24/24 Range/Units 12:06 WBC 7.0 (4.8-10.8) X10*3/uL RBC 4.63 (4.20-5.50) X10*6/uL Hgb 12.0 (12.0-16.0) g/dl Hct 36.8 L (37.0-47.0) % MCV 79.5 L (80.0-98.0) fL MCH 25.9 L (27.0-33.0) pg MCHC 32.6 (31.0-35.0) g/dl RDW 15.5 (11.0-16.0) % Plt Count 253 (160-400) X10*3/uL MPV 11.3 (9.4-12.3) fL Immature Gran % (Auto) 0.3 (0.0-0.4) % Neut % (Auto) 83.3 H (45-73) % Lymph % (Auto) 7.5 L (20-40) % [place] % (Auto) 6.2 (2-11) % Eos % (Auto) 1.7 (0-4) % Baso % (Auto) 1.0 (0-2) % Lymph # (Auto) 0.5 L (1.2-4.9) X10*3/uL [place] # (Auto) 0.4 (0.1-1.2) X10*3/uL Eos # (Auto) 0.1 (0.0-0.4) X10*3/uL Baso # (Auto) 0.1 (0.0-0.2) X10*3/uL Abs Immat Gran (auto) 0.02 (0.00-0.03) X10*3/uL Absolute Neuts (auto) 5.8 (2.0-8.3) x10*3/uL Absolute Nucleated RBC 0.000 (0.0-0.012) X10*3/uL Nucleated RBC % (auto) 0.0 (0.0-0.2) /100WBC Sodium 135 (135-145) mmol/L Potassium 3.7 (3.3-5.1) mmol/L Chloride 107 (96-108) mmol/L Carbon Dioxide 21 L (22-29) mmol/L Anion Gap 11 L (12-20) BUN 11 (9-16) mg/dL Creatinine 0.72 (0.5-1.4) mg/dL Estim Creat Clear Calc 125.5 Estimated GFR > 60 Random Glucose 92 (60-115) mg/dL Calcium 8.6 (8.4-10.2) mg/dL Magnesium 1.8 (1.6-2.6) mg/dL Total Bilirubin 0.3 (0.0-1.0) mg/dL AST 22 (5-31) U/L ALT 27 (0-31) U/L Alkaline Phosphatase 95 (39-117) U/L Troponin I High Sens < 2.7 (<3.5-17.0) ng/L Total Protein 7.5 (6.5-8.0) g/dL Albumin 3.9 (3.5-5.0) g/dL Beta HCG, Quant < 2 mIU/mL Influenza Type A (PCR) POSITIVE A (Negative) Influenza Type B (PCR) NEGATIVE (Negative) RSV RNA Qual (PCR) NEGATIVE (Negative) SARS-CoV-2 RNA (RT-PCR) NEGATIVE (Negative) S. pyogenes GrpA YESICA Negative (Negative) Independent Interpretation I performed an independent interpretation of an: Plain X-Ray Interpretation: CXR without infiltrate or consolidation Radiology Impression Discussion of test interpretation with radiology: I have reviewed the radiologist's reading. Radiologist Impression: EXAMINATION: XR CHEST CLINICAL INFORMATION: cough, chest pain COMPARISON: None available. TECHNIQUE: 2 views of the chest were obtained. FINDINGS: The cardiac, hilar, and mediastinal contours are normal. The lungs are clear bilaterally. There is no pneumothorax or pleural effusion. There is no focal osseous or soft tissue abnormality. XR/XR chest 2V IMPRESSION: Normal chest. Electronically signed by: Neftali Jennings MD 04/24/2024 12:35 PM [facility] Independent Historian Clinical information obtained from an independent historian. History obtained from or confirmed by: Spouse External Record Review External record reviewed: Inpatient record Prescription Management I considered prescription management with: Other (Guaifenesin, Zofran) Social Determinants Patient?s care significantly limited by Social Determinants of Health including: Other Social Determinant of Health Critical Care Time Critical Care Time Critical Care Time: No Discharge Plan Discharge Clinical Impression: Influenza A Patient Disposition: Home, Self-Care Instructions: Influenza (ED) Additional Instructions: Today you tested positive for Influenza A. Your blood work is reassuring. Your chest xray and ekg are normal. Take Ibuprofen or Tylenol as needed for fevers or body aches.? Practice social distancing and good hand hygiene. Drink plenty of fluids. Zofran has been sent to your pharmacy for your nausea. Guaifenesin has been sent to your pharmacy for cough. Follow-up with your primary care provider this week. Return to the emergency department with new or worsening symptoms. In case of emergency call 911 Prescriptions: New guaifenesin 200 mg tablet 200 mg PO TID PRN (Reason: cough) Qty: 10 0RF ondansetron 4 mg tablet,disintegrating 4 mg PO DAILY PRN (Reason: nausea and vomiting) 5 Days Qty: 10 0RF No Action lidocaine 5 % adhesive patch,medicated 1 patch topical DAILY Qty: 15 0RF Rx Instructions: leave on most painful area for up to 12 hrs Stand Alone Forms: Work/School Release Interventions: ED Discharge Assessment Last Done: 04/24/24 16:12 Discharge Date/Time: 04/24/24 16:22 Print Language: [place] Islander
[2024-04-24 12:21] LABS: MANUAL DIFF FLAG NO
[2024-04-24 12:26] LABS: Basophils Absolute Auto 0.1 X10*3/uL (0.0-0.2); Eosinophils Absolute Auto 0.1 X10*3/uL (0.0-0.4); Eosinophils Percent Auto 1.7 % (0-4); Hematocrit 36.8 % (37.0-47.0); Imm Gran Abs Auto 0.02 X10*3/uL (0.00-0.03); Imm Gran Pct Auto 0.3 % (0.0-0.4); Lymphocytes Absolute Auto 0.5 X10*3/uL (1.2-4.9); Lymphocytes Percent Auto 7.5 % (20-40); Mean Corpuscular HGB Conc 32.6 g/dl (31.0-35.0); Mean Corpuscular Hemoglobin 25.9 pg (27.0-33.0); Mean Corpuscular Volume 79.5 fL (80.0-98.0); Mean Platelet Volume 11.3 fL (9.4-12.3); Monocytes Absolute Auto 0.4 X10*3/uL (0.1-1.2); Monocytes Percent Auto 6.2 % (2-11); Neutrophils Absolute Auto 5.8 x10*3/uL (2.0-8.3); Neutrophils Percent Auto 83.3 % (45-73); Platelet Count 253 X10*3/uL (160-400); Red Blood Count 4.63 X10*6/uL (4.20-5.50); Red Cell Distribution Width 15.5 % (11.0-16.0)
[2024-04-24 12:30] LABS: IDNOW Serial# 152EDE1D; Strep A Nucleic Acid Negative (Negative)
[2024-04-24 12:55] LABS: Alanine Aminotransferase 27 U/L (0-31); Albumin Level 3.9 g/dL (3.5-5.0); Alkaline Phosphatase 95 U/L (39-117); Anion Gap 11 (12-20); Aspartate Amino Transferase 22 U/L (5-31); Bilirubin Total 0.3 mg/dL (0.0-1.0); Blood Urea Nitrogen 11 mg/dL (9-16); Calcium 8.6 mg/dL (8.4-10.2); Carbon Dioxide 21 mmol/L (22-29); Chloride 107 mmol/L (96-108); Creatinine Clr Calc Pharmacy 125.5; Estimated Glomerular Filt Rate > 60; Glucose Random 92 mg/dL (60-115); HCG Quantitative < 2 mIU/mL; Magnesium 1.8 mg/dL (1.6-2.6); Potassium 3.7 mmol/L (3.3-5.1); Sodium 135 mmol/L (135-145); Total Protein 7.5 g/dL (6.5-8.0); Troponin-I High Sensitivity < 2.7 ng/L (<3.5-17.0)
[2024-04-24 13:00] LABS: Influenza A PCR POSITIVE (Negative); Influenza B PCR NEGATIVE (Negative); Resp Syncy Virus RNA Qual PCR NEGATIVE (Negative); SARS COV2 PCR INHOUSE NEGATIVE (Negative)
[2024-04-24 16:04] VITALS: BP 116/75; PULSE 113; RESP 20; TEMP 37.6; O2SAT 99
[2024-04-24 16:12] VITALS: BP 116/75; PULSE 113; RESP 20; TEMP 37.6; O2SAT 99
--- OUTSIDE RECORDS SUMMARY | 2024-04-24 16:39 | XMS_ITS | Encounter Summary ---
Demographics Address [address] [place] [address] Mobile Phone Home Phone Email Address Preferred Language es Marital Status Single Hoahaoism Affiliation Unknown Race White Ethnic Group or Author Organization [employer] Address [address] [place] [address] Support Name Relationship Address Phone Himanshu Small Spouse [address] [address] [place] [address] Care Team Providers Care Package Handler Name Role Phone Tracy Storey MD Primary Care Provider + Reason for Referral * Consultation (Routine) - Closed Specialty Diagnoses / Procedures Referred By Juan stringer Referred To Contact General Surgery Diagnoses Dermoid cyst of scalp Tracy Storey MD [address] [place] [address] Phone: tel: fax: [facility] [address] [place], [place] Phone: tel: fax: Referral ID Status Reason Start Date Expiration Date V isits Requested Visits Authorized [id number] Closed Specialty Services Required 03/28/2024 03/28/2025 12 12 Encounter Details Date Type Department Care Team (Late st Contact Info) Description 03/27/2024 Orders Only [facility] [address] [place] [address] Tracy Storey MD [address] [place], [place] [phone] Dermoid cyst of scalp (Primary Dx) Social [...] neck documented in this encounter Care Teams Package Handler Relationship Specialty Start Date End Date Tracy Storey MD [address] [place] [id number] PCP - General Family Medicine 03/01/19 documented as of this encounter
--- OUTSIDE RECORDS SUMMARY | 2024-04-24 16:39 | XMS_ITS | Encounter Summary ---
Demographics Address [address] [place] [address] Mobile Phone Home Phone Email Address Preferred Language es Marital Status Single Amish Affiliation Unknown Race White Ethnic Group or Author Organization [employer] Address [address] [place] [address] Support Name Relationship Address Phone Himanshu Small Spouse [address] [place] [address] Care Team Providers Care Developmental Specialist Name Role Phone Tracy Storey MD Primary Care Provider + Encounter Details Date Type Department Care Team (Late st Contact Info) Description 01/03/2024 Orders Only [facility] [address] [place] [address] Anthony Stearns MD [address] [place] [address] Social History Tobacco Use Types Packs/Day Years [...] on filedocumented in this encounter Care Teams Developmental Specialist Relationship Specialty Start Date End Date Tracy Storey MD [address] [place] [id number] PCP - General Family Medicine 03/01/19 documented as of this encounter
--- OUTSIDE RECORDS SUMMARY | 2024-04-24 16:39 | XMS_ITS | Clinical Summary ---
Demographics Address [address] [place] [address] Mobile Phone Home Phone Email Address Preferred Language es Marital Status Single Buddhist Affiliation Unknown Race White Ethnic Group or Author Organization [employer] Address [address] [place] [address] 7[address] [place] [address] Support Name Relationship Address Phone Himanshu Small Spouse [address] [place] [address] Care Team Providers Care Aerial Crop Duster Name Role Phone Tracy Storey MD Primary Care Provider + Allergies Active Allergy Reactions Criticality Noted Date Comments Cetirizine 07/01/2020 Other reaction(s): Hives / Skin Rash Kiwi Extract 05/04/2023 Shellfish Allergy 02/13/2023 Medications fluticasone (Flonase) 50 MCG/ACT nasal sprayIndications :Dysfunction of right eustachian tube SPRAY 1 SPRAY INTO EACH NOSTRIL EVERY MORNING 48 mL 4 Active ibuprofen 400 MG tablet Take 1 tablet (400 mg) by mouth every 8 (eight) hours if needed for moderate pain or fever for up to 30 doses. 30 tablet 4 Active EPINEPHrine (Epipen) 0.3 MG/0.3ML injection syringe Inject 0.3 mL (0.3 mg) as directed 1 (one) time if needed for anaphylaxis. Inject into upper leg. Call 911 after use. 1 each 3 4 09/09/19 25 Active diphenhydrAMINE (BENADryl) 25 MG tablet Take 1 tablet (25 mg) by mouth every 6 (six) hours if needed for itching. 30 tablet 4 Active SUMAtriptan (Imitrex) 25 MG tabletIndication s:Migraine without status migrainosus, not intractable, unspecified migraine type Take 1 tablet by mouth at onset of migraine; may repeat after 2 hours if headache returns; do not exceed 200mg in 24 hours 9 tablet 11 4 Active loratadine (Claritin) 10 MG tablet Take 1 tablet (10 mg) by mouth Once per day. 30 tablet 11 4 09/09/19 25 Active lidocaine (Lidoderm) 5 % patch APPLY 1 PATCH TOPICALLY ONCE PER DAY. REMOVE AND DISCARD PATCH WITHIN 12 HOURS as DIRECTED BY MD. 30 patch 2 4 Active acetaminophen (Tylenol) 500 MG tablet Take 1 tablet (500 mg) by mouth every 6 (six) hours if needed for mild pain or moderate pain for up to 100 doses. 100 tablet 4 Active cyclobenzaprine (Flexeril) 10 MG tablet Take 1 tablet (10 mg) by mouth if needed in the morning and at bedtime for muscle spasms for up to 10 days. 20 tablet 4 Active Active Problems Problem Noted Date Diagnosed Date Acute right-sided low back pain without sciatica 01/16/2024 Assessment & Plan (01/16/2024 7:37 PM EDT): Recommended heat to affected area and apply Diclofenac xxx BID. Take Tylenol plus Cyclobenzaprine prn. Recommended stretching exercises and gave her information. Re consult prn. Dermoid cyst of scalp 01/16/2024 Assessment & Plan (01/16/2024 7:38 PM EDT): Refer to surgery for excision. Strep pharyngitis 12/20/2023 Assessment & Plan (12/20/2023 10:59 AM EDT): -rapid strep positive -amoxicillin 500mg bid for 10 days -droplet precautions discussed -supportive care discussed -ER precautions given Necrosis of dental pulp 07/31/2023 Severe dental caries 07/31/2023 Periodontal disease 07/10/2023 Dental calculus 07/10/2023 Multiple food allergies 2022 Assessment & Plan (09/09/2023 10:51 AM EDT): Will refer to a new director risk as patient was not given another appt, needs allergy testing. Refill for loratadine, benadryl and Epipen sent to pharmacy Assessment & Plan (2022 1:50 PM EDT): Pt needs to be referred to allergiest for testing, especially given high IGE levels. Continue Flavia daily and Benadryl PRN, pt also carries epi pen Dysfunction of right eustachian tube 2022 Assessment & Plan (2022 1:50 PM EDT): On right ear most likely related to allergies as well. Continue Flavia and use Flonase PRN ear fullness or itchiness Migraine without status migrainosus, not intract able 2022 Acute frontal sinusitis 05/13/2022 Hand pain 05/13/2022 Obesity (BMI 30-39.9) 05/13/2022 Seborrheic dermatitis of scalp 05/13/2022 Teratoma of ovary 05/13/2022 Vitamin D deficiency 05/13/2022 Encounters Date Type Department Care Team Description 04/11/2024 Orders Only GENERIC EXTERNAL DATA DEPARTMENT Provider, [facility] External Data 03/28/2024 Telephone [facility] [address] [place] [address] Tracy Storey MD 03/27/2024 Orders Only [facility] [address] [place] [address] Tracy Storey MD Dermoid cyst of scalp (Primary Dx) 02/13/2024 Orders Only [facility] External Provider, [facility] from Last 3 Months Social History Tobacco Use Types Packs/Day Years Used Date Smoking Tobacco: Never Smokeless Tobacco: Never Tobacco Cessation:Counseling Given: Not Answered Alcohol Use Standard Drinks/Week Comments Never 0 [...] Orientation Straight 01/17/2022 10 :36 AM EDT Last Filed Vital Signs Vital Sign Reading Time Taken Comments Blood Pressure 115/70 01/16/2024 3:10 PM EDT Pulse 93 01/16/2024 3:10 PM EDT Temperature 36.2 ??C (97.2 ??F) 01/16/2024 3:10 PM ED T Respiratory Rate 24 01/16/2024 3:10 PM EDT Oxygen Saturation 100% 01/16/2024 3:10 PM EDT Inhaled Oxygen Concentration - - Weight 112 kg (247 lb 6 oz) 01/16/2024 3:10 PM E DT Height 154.9 cm (5' 1 ) 01/16/2024 3:10 PM EDT Body Mass Index 46.74 01/16/2024 3:10 PM EDT Plan of Treatment Health Maintenance Due Date Last Done Comments Depression Screening 1990 HIV Screening 1990 Alcohol/Substance Use Screening 2000 Family Planning (PISQ) 06/18/2003 Hepatitis C Screening 2006 DTaP/Tdap/Td Vaccines (1 - Tdap) 06/18/2007 Hepatitis B Vaccines (1 of 3 - 19+ 3-dose series) 06/18/2007 Dental Oral Exam 11/03/2023 05/04/2023 COVID-19 Vaccine ( - 2023-2 5 season) 2023 10/31/2020, 10/01/2020 Influenza Vaccine (#1) 2023 Dental Prophylaxis 01/10/2024 07/10/2023 Dental X-Ray: Bitewings 05/05/2024 05/04/2023 SDOH Screening 12/12/2024 12/13/2023 Pap Smear 12/20/2024 12/20/2021 Tobacco Screening 01/15/2025 01/16/2024 Dental X-Ray: Full Mouth 07/31/2026 024, 05/04/2023, 02/13/2023 Lipid Panel 11/27/2026 11/27/2021, 07/04/2020 Cervical Cancer Screening 12/20/2026 HPV/Cotest 12/20/2026 12/20/2021 Zoster Vaccines (1 of 2) 2038 RSV Patients and Patients Aged 60 years or older (1 - 1-dose 75+ series) 06/18/2063 HIB Vaccines Aged Out No longer eligi ble based on patient's age to complete this topic HPV Vaccines Aged Out No longer eligi ble based on patient's age to complete this topic Hepatitis A Vaccines Aged Out No long er eligible based on patient's age to complete this topic IPV Vaccines Aged Out No longer eligi ble based on patient's age to complete this topic Meningococcal Vaccine Aged Out No sy sharon eligible based on patient's age to complete this topic Pneumococcal Vaccine: Pediatrics (0 to 5 Years) and At-Risk Patients (6 to 49) Years) Aged Out No longer eligible b ased on patient's age to complete this topic RSV under 20 months Aged Out No longe r eligible based on patient's age to complete this topic Rotavirus Vaccines Aged Out No longer eligible based on patient's age to complete this topic Procedures Procedure Name Priority Date/Time Associated Diagnosis Comments GROSS AND MICROSCOPIC LEVEL 3 Routine 04/11/2024 3:00 PM EST MR SHOULDER WO CONTRAST RIGHT Routine 02/13/2024 5:32 PM EST PANORAMIC RADIOGRAPHIC IMAGE Routine 07/31/2023 9:00 AM EDT PROPHYLAXIS - ADULT Routine 07/10/2023 1 0:00 AM EDT Periodontal disease Dental calculus DIAGNOSTIC - DIAGNOSTIC IMAGING - INTRAORAL - COMPREHENSIVE SERIES OF RADIOGRAPHIC IMAGES Routine 05/04/2023 10:30 AM EST COMPREHENSIVE ORAL EVALUATION - NEW OR ESTABLISHED PATIENT Routine 05/04/2023 10:30 AM EST THINPREP IMAGING PAP AND HPV MRNA E6/E7, WITH CT/NG, TRICHOMONAS Routine 12/20/2021 12:00 AM EDT [facility] HISTORICAL LIPID PANEL Routine 11/27/2021 7:24 AM EDT from Last 3 Months or Most Recently Relevant to Health Maintenance Results * Gross and Microscopic Level 3 (04/11/2024 3:00 PM EST) 04/11/2024 3:00 PM EST 04/12/2024 7:10 AM EST [facility] - 04/15/2024 10:17 AM EST ----- ------- Name: Maria T Mayes ? Age/Sex: 33/F ? : 1990 Unit#: [id number] ?? Attend Dr: Doc Gilbert MD ?Re04/11/24 ?Status: DEP REF ? Location: HO.LNP ?Disch: ? ----- ------- SPEC : [id number] ?RECD: 04/12/24 ? STATUS: ??SOUT ? REQ NUM: [id number] ? OK: 04/11/24-1500 ? SUBM DR: Doc Gilbret MD ? ENTERED: ??04/12/24 ?SP TYPE: Surgical ? OTHR DR: Tracy Storey MD ? ORDERED: ??Gross Micro L3 ? Diagnosis ?? Scalp, left vertex cyst, excision: ??Trichilemmal (pilar) cyst with calcification. ?Clinical History Pilar cyst ?Microscopic Description Microscopic sections reviewed. ? Material Received ?? Left vertex scalp pilar cyst ? Gross Description Received in formalin labeled ?left vertex scalp-pilar cysts (3 pieces)? are fragments of martinez white, firm cyst wall and cyst contents forming in aggregate that measures 2.5 x 2.0 x 1.1 cm in greatest dimension. ??The cyst wall fragments measure of 0.2 cm in greatest thickness. ??The cyst contents are magaña-white and firm. ??Multineedle Shirrer sections are submitted for microscopic examination, 4 pieces in cassette A. [facility] Copies To: ?? Tracy Storey MD ?? [facility] ?? [address] ?? [place] [address] ?? [phone] ?? Doc Gilbert MD ?? [facility] ?? [address] ?? [place] [address] ?? [phone] ----- ------- Signed (signature on file) Rizwana Suzi 04/15/24 1017 ? ----- ------- ? END OF REPORT ? us Generic External Data Provider LAB CYTOLOGY LUZ ELENA ORTEGA Final Result [facility] [address] [place] [address] [place] [address] [phone] * MR Shoulder w/o Contrast Right (02/13/2024 5:32 PM EST) Anatomical Region Laterality Modality Upper Extremities, Shoulder Right Magn etic Resonance 02/13/2024 5:32 PM EST Narrative 02/18/2024 11:43 PM EST ? [facility] ?[address] ?[place] [address] ? Magnetic Resonance Report ? Signed ? Patient: Joe Parker,Maria T E ?MR# ?? : [id number] ? : 1990 ?Acct:[id number] ? Age/Sex: 33 / F ?ADM Date: 11/26/24 ? Loc: HO.MRI ? Attending Dr: Henri Camacho MD ? Ordering Physician: Henri Camacho MD ?? Date of Service: 02/13/24 ?? Procedure(s): MR shoulder RT wo con ?? Accession Number(s): [id number] ? cc: Tracy Storey MD; Henri Camacho MD ? EXAMINATION: ?? MR SHOULDER WITHOUT CONTRAST, RIGHT ? CLINICAL INFORMATION: ?? Right shoulder pain ? COMPARISON: ?? Radiograph dated 08/07/2023 ? TECHNIQUE: ?? MRI of the shoulder without contrast was performed on a high-field ?? scanner. ? FINDINGS: ?? ROTATOR CUFF: Minimal supraspinatus and subscapularis tendinosis. No ?? tears. No muscle atrophy or fatty infiltration. ? BICEPS: Normal. ? CORACOACROMIAL ARCH: The undersurface of the acromion is curved with no ?? subacromial spur. Mild acromioclavicular osteoarthritis. Focal ?? subcortical edema and cystic change distal clavicle is consistent with ?? mild distal clavicular osteolysis. AC joint capsule is thickened and ?? edematous. No subacromial subdeltoid bursitis. ? LABRUM/CAPSULE: Diminutive posterior labrum is likely due to ?? developmental. Articular sided fraying is suspected at the superior ?? labrum without discrete tear. The anteroinferior glenoid labrum is ?? ill-defined between the anteroinferior 4 o'clock position and 5 o'clock ?? position with loss of labral tissue and fraying, likely correspond to a ?? chronic focal labral tear. ? GLENOHUMERAL JOINT/MARROW: Articular cartilage appears well preserved. ?? No fracture or malalignment. Bone marrow signal is normal. No joint ?? effusion. ? MR/MR shoulder RT wo con ?? IMPRESSION: ?? 1. ??Mild acromioclavicular osteoarthritis with significant ?? periarticular edema and mild distal clavicular osteolysis. ?? 2. ??Minimal supraspinatus and subscapularis tendinosis. No rotator cuff ?? tears. ?? 3. ??Probable small focal tear of the anteroinferior glenoid labrum. ? Electronically signed by: ??Neftali Martini MD ??02/18/2024 11:39 PM EST RP ? Dictated By: ?Neftali Martini MD ? Signed By: ?<Electronically signed by Neftali Martini MD in OV> ? 02/18/242338 ? DD/ ? TD/TT: 02/13/24 1749 ? Executive Staff Assistant: SABRINA ? Procedure Note Donsushila, Sabrina - 02/18/[address] [address] Magnetic Resonance Report Signed Patient: Maria T Mayes EMR# : [id number] : 1990Acct:[id number] Age/Sex: 33 / FADM Date: 02/13/24 Loc: HO.MRI Attending Dr: Henri Camacho MD Ordering Physician: Henri Camacho MD Date of Service: 02/13/24 Procedure(s): MR shoulder RT wo con Accession Number(s): [id number] cc: Tracy Storey MD; Henri Camacho MD EXAMINATION: MR SHOULDER WITHOUT CONTRAST, RIGHT CLINICAL INFORMATION: Right shoulder pain COMPARISON: Radiograph dated 08/07/2023 TECHNIQUE: MRI of the shoulder without contrast was performed on a high-field scanner. FINDINGS: ROTATOR CUFF: Minimal supraspinatus and subscapularis tendinosis. No tears. No muscle atrophy or fatty infiltration. BICEPS: Normal. CORACOACROMIAL ARCH: The undersurface of the acromion is curved with no subacromial spur. Mild acromioclavicular osteoarthritis. Focal subcortical edema and cystic change distal clavicle is consistent with mild distal clavicular osteolysis. AC joint capsule is thickened and edematous. No subacromial subdeltoid bursitis. LABRUM/CAPSULE: Diminutive posterior labrum is likely due to developmental. Articular sided fraying is suspected at the superior labrum without discrete tear. The anteroinferior glenoid labrum is ill-defined between the anteroinferior 4 o'clock position and 5 o'clock position with loss of labral tissue and fraying, likely correspond to a chronic focal labral tear. GLENOHUMERAL JOINT/MARROW: Articular cartilage appears well preserved. No fracture or malalignment. Bone marrow signal is normal. No joint effusion. MR/MR shoulder RT wo con IMPRESSION: 1. Mild acromioclavicular osteoarthritis with significant periarticular edema and mild distal clavicular osteolysis. 2. Minimal supraspinatus and subscapularis tendinosis. No rotator cuff tears. 3. Probable small focal tear of the anteroinferior glenoid labrum. Electronically signed by: Neftali Martini MD 02/18/2024 11:39 PM EST Dictated By: Neftali Martini MD Signed By: <Electronically signed by Neftali Martini MD in OV> 02/18/24 2738 DD/ 31 TD/TT: 02/13/24 174 Executive Staff Assistant: SABRINA [facility] External Provider IMG MRI PROCEDURES Edited Result - Final * THINPREP TIS PAP AND HPV mRNA E6/E7, CT/NG, TRICH (12/20/2021 12:00 AM EDT) Chlamydia trachomatis RNA, TMA, Urogenital NOT DETECTED NOT DETECTED [facility] Clinical Information: None given [facility]VERTED [facility] COMMENT SEE COMMENT LIZETTE Alejandro [facility] Comment: The analytical performance characteristics of this assay, when used to test SurePath(TM) specimens have been determined by [employer]. The modifications have not been cleared or approved by the FDA. This assay has been validated pursuant to the CLIA regulations and is used for clinical purposes. ?? For additional information, please refer to https://education.[employer]/faq/YFL131 (This link is being provided for information/ educational purposes only.) ?? COMMENT SEE COMMENT LIZETTE Alejandro [facility] Comment: EXPLANATORY NOTE: ? The Pap is a screening test for cervical cancer. It is ?? not a diagnostic test and is subject to false negative ?? and false positive results. It is most reliable when a ?? satisfactory sample, regularly obtained, is submitted ?? with relevant clinical findings and history, and when ?? the Pap result is evaluated along with historic and ?? current clinical information. ?? COMMENT: SEE COMMENT CONVER[facility] D [facility] Comment: This case could not be evaluated with computer assisted technology. The slide was manually screened according to routine procedures. Tape Machine Tailer: SEE COMMENT [facility] Comment: MANSI, CT(ASCP) CT screening location: [address] ??[address] HPV nRNA E6/E7 Not Detected Not Detected [facility] Comment: Methodology: Occupational Therapist Assistant-Mediated Amplification This assay detects E6/E7 viral messenger RNA (mRNA) from 14 high-risk HPV types (16,18,31,33,35,39,45,51,52,56,58,59,66,68). ? Cervical sources are required for HPV testing. If a vaginal source from a patient who has had a total hysterectomy with removal of cervix was ?? submitted, please contact the testing laboratory for alternative testing options. ?? For additional information, please refer to http://[employer]/faq/PSJ027n9 (This link if provided for information/ educational purposes only.) Interpretation/Re sult: Negative for intraepithelial lesion or malignancy. [facility] LMP: NONE GIVEN [facility] Neisseria gonorrhoeae RNA, TMA, Urogenital NOT DETECTED NOT DETECTED [facility] Prev. BX: NONE GIVEN [facility] Prev. PAP: NONE GIVEN [facility]VER[facility] D [facility] SOURCE: None given [facility]ED [facility] Statement Of Adequacy: SEE COMMENT [facility] Comment: Satisfactory for evaluation. Endocervical/transformation zone component present. Age and/or menstrual status not provided Trichomonas vaginalis, QL, TMA, PAP Vial NOT DETECTED NOT DETECTED [facility] Comment: The analytical performance characteristics of this assay have been determined by [facility]. The modifications have not been cleared or approved by the FDA. This assay has been validated pursuant to the CLIA regulations and is used for clinical purposes. ?? For additional information, please refer to http://education.Syl[employer]/ faq/Trichomonastma (This link is being provided for information/ educational purposes only.) ?? 12/20/2021 Tracy Storey MD LAB PATHOLOGY ORDERABLES Final Result Performing Organization Address [facility]/ZIP Co de Phone Number CONVERTED [facility]GACY [facility] * LIPID PANEL (11/27/2021 7:24 AM EDT) Cholesterol 139 mg/dL [facility] Comment: Desirable Cholesterol: ?less than 200 mg/dL Borderline High Cholesterol: ??200-239 mg/dL High Cholesterol: ? greater than 239 mg/dL HDL Cholesterol 38 mg/dL [facility] Comment: Desirable HDL: ??greater than 40 mg/dL ?? Note: This HDL assay may give artificially ? low results in patients with liver disease. LDL Cholesterol Calculated 72 mg/dl [facility] Comment: Desirable LDL: ? less than 100 mg/dL Near Optimal/Above Optimal LDL: ??110-129 mg/dL Borderline High LDL: ? 130-159 mg/dL High LDL: ?160-189 mg/dL Very High LDL: ? greater than or equal to ?190 mg/dL Triglycerides 145 mg/dL [facility] Comment: Desirable Triglyceride: ? less than 150 mg/dL Borderline High Triglyceride ??150-199 mg/dL High Triglyceride: ?200-499 mg/dL Very High Triglyceride: ? greater than or equal to ? 5OO mg/dL 11/27/2021 7:24 AM EDT Tracy Storey MD HISTORICAL/NON ORDERABLE LABS Final Result [facility] [address] from Last 3 Months or Most Recently Relevant to Health Maintenance Insurance * Guarantor: Maria T Mayes Account Type Relation to Patient Date of Phone Billing Address Personal/Family Self [address] [place] [address] [place] [address] [facility] MEDICA[facility] STAND ADULT * Guarantor: Maria T Mayes Account Type Relation to Patient Date of Phone Billing Address Personal/Family Self [address] [place] [address] * Guarantor: Maria T Mayes Account Type Relation to Patient Date of Phone Billing Address Personal/Family Self [address] [place] [address] * Guarantor: Maria T Mayes Account Type Relation to Patient Date of Phone Billing Address Personal/Family Self [address] [place] [address] Care Teams Aerial Crop Duster Relationship Specialty Start Date End Date Tracy Storey MD [address] [place] [id number] PCP - General Family Medicine 03/01/19
--- OUTSIDE RECORDS SUMMARY | 2024-04-24 16:40 | XMS_ITS | Encounter Summary ---
Demographics Address [address] [place] [address] Mobile Phone Home Phone Email Address Preferred Language es Marital Status Single Yarsanism Affiliation Unknown Race White Ethnic Group or Author Organization [email or web address] Address [address] [place] [address] [address] [place] [address] Support Name Relationship Address Phone Himanshu Small Spouse [address] [place] [address] Care Team Providers Care Drawer Waxer Name Role Phone Tracy Storey MD Primary Care Provider + Reason for Visit * Reason Comments Med Refill Encounter Details Date Type Department Care Team ([facility] st Contact Info) Description 06/28/2022 Refill [facility] [address] [place] [address] Tracy Storey MD [address] [place] [address] Dysfunction of right eustachian tube Social History [...] tube documented in this encounter Care Teams Drawer Waxer Relationship Specialty Start Date End Date Tracy Storey MD [address] [place] [address] PCP - General Family Medicine 03/01/19 documented as of this encounter
--- OUTSIDE RECORDS SUMMARY | 2024-04-24 16:40 | XMS_ITS | Encounter Summary ---
Demographics Address [address] [place] [address] Mobile Phone Home Phone Email Address [employer] Preferred Language es Marital Status Single Jainism Affiliation Unknown Race White Ethnic Group or Author Organization [employer] Address [address] [place] [address] [address] [place] [address] Support Name Relationship Address Phone Himanshu Small Spouse [address] [place] [address] Care Team Providers Care Stemmer Machine Name Role Phone Tracy Storey MD Primary Care Provider + Encounter Details Date Type Department Care Team (Late st Contact Info) Description 04/14/2022 Telephone [facility] [address] [place] [address] Tracy Storey MD [address] [place] [address] Social History Tobacco Use Types Packs/Day Years [...] on filedocumented in this encounter Care Teams Stemmer Machine Relationship Specialty Start Date End Date Tracy Storey MD [address] [place], [place] [phone] PCP - General Family Medicine 03/01/19 documented as of this encounter
--- OUTSIDE RECORDS SUMMARY | 2024-04-24 16:40 | XMS_ITS | Encounter Summary ---
Demographics Address [address] [place] [address] Mobile Phone Home Phone Email Address Preferred Language es Marital Status Single Protestant Affiliation Unknown Race White Ethnic Group or Author Organization [employer] Address [address] [place] [address] Support Name Relationship Address Phone Himanshu Small Spouse [address] [place] [address] Care Team Providers Care Icing Machine Operator Name Role Phone Tracy Storey MD Primary Care Provider + Encounter Details Date Type Department Care Team (Late st Contact Info) Description 04/11/2024 Orders Only GENERIC EXTERNAL DATA DEPARTMENT Provider, Generic External Data Social History Tobacco Use Types Packs/Day Years Used Date Smoking Tobacco: Never Smokeless Tobacco: Never Alcohol Use Standard Drinks/Week Comments Never 0 (1 standard drink = 0.6 oz pur e alcohol) Housing Stability Answer Date Recorded What is your housing situation today? I have scott luh 12/13/[address] you li [...] on file documented as of this encounter Procedures Procedure Name Priority Date/Time Associated Diagnosis Comments GROSS AND MICROSCOPIC LEVEL 3 Routine 04/11/2024 3:00 PM EST documented in this encounter Results * Gross and Microscopic Level 3 (04/11/2024 3:00 PM EST) 04/11/2024 3:00 PM EST 04/12/2024 7:10 AM EST [facility]S - 04/15/2024 10:17 AM EST ----- ------- Name: Maria T Mayes ? Age/Sex: 33/F ? : 1990 Unit#: [id number] ?? Attend Dr: Doc Gilbert MD ?Re04/11/24 ?Status: DEP REF ? Location: HO.LNP ?Disch: ? ----- ------- SPEC : [id number] ?RECD: 04/12/24 ? STATUS: ??SOUT ? REQ NUM: [id number] ? OK: 04/11/24-1500 ? SUBM DR: Doc Gilbert MD ? ENTERED: ??04/12/24 ?SP TYPE: Surgical [...] ??The cyst contents are magaña-white and firm. ??Chart Snatcher sections are submitted for microscopic examination, 4 pieces in cassette [facility] Copies To: ?? Tracy Storey MD ?? [facility] ?? [address] ?? [place] [address] ?? [phone] ?? Doc Gilbert MD ?? [facility] ?? [address] ?? [place] [address] ?? [phone] ----- ------- Signed (signature on file) Rizwana Archer 04/15/24 1017 ? ----- ------- ? END OF REPORT ? us Generic External Data Provider LAB CYTOLOGY ORDE SHANNON Final Result [facility] [address] [place] [address] [phone] documented in this encounter Visit Diagnoses Not on filedocumented in this encounter Care Teams Icing Machine Operator Relationship Specialty Start Date End Date Tracy Storey MD [address] [place] [address] PCP - General Family Medicine 03/01/19 documented as of this encounter
--- OUTSIDE RECORDS SUMMARY | 2024-04-24 16:40 | XMS_ITS | Encounter Summary ---
Demographics Address [address] [facility] [address] [place] [address] Mobile Phone Home Phone Email Address Preferred Language es Marital Status Single Restorationism Affiliation Unknown Race White Ethnic Group or Author Organization [employer] Address [address] [place] [address] Support Name Relationship Address Phone Himanshu Small Spouse [address] [place] [address] Care Team Providers Care Rehabilitation Therapy Technician Name Role Phone Tracy Storey MD Primary Care Provider + Encounter Details Date Type Department Care Team (Late st Contact Info) Description 03/28/2024 Telephone [facility] [address] [place] [address] Tracy Storey MD [address] [place], [place] [phone] Social History Tobacco Use Types Packs/Day Years [...] on filedocumented in this encounter Care Teams Rehabilitation Therapy Technician Relationship Specialty Start Date End Date Tracy Storey MD [address] [place] [address] PCP - General Family Medicine 03/01/19 documented as of this encounter
== END 2024-04-24 16:22 | disposition home or self-care (01) ==
LOC: HO.ED 16:21
PROVIDERS: Physician Assistant Medical; Emergency Provider Emergency Medicine
DX: J10.1 Influenza due to other identified influenza virus with other respiratory manifestations (principal); R05.9 Cough, unspecified; R07.9 Chest pain, unspecified; R51.9 Headache, unspecified; H92.02 Otalgia, left ear; R53.1 Weakness
CPT/HCPCS: 0241U; 36415; 71046; 80053; 83735; 84484; 84702; 85025; 87651; 93005; 99282; 99283

== ENCOUNTER → 2024-04-24 11:37 | Outpatient (BNV) | payer MEDICAID, SELFPAY | PROVIDERS: Visit Provider Radiology Diagnostic Radiology | DX: R05.9 Cough, unspecified (principal); R07.9 Chest pain, unspecified | CPT/HCPCS: 71046 ==

== ENCOUNTER 2024-05-01 10:08 | Outpatient (AMB) | payer MEDICAID, SELFPAY ==
[2024-05-01 10:25] VITALS: BMI 46.1
--- NOTE | 2024-05-01 10:25 | A.OFFVIS_ITS ---
Vital Signs 05/01/24 10:25 Height 5 ft 1 in Weight 243 lb 13.3 oz BMI 46.1 Intake Visit Reasons: s/p Excision Scalp cyst Intake Note: This patient presents for suture removal status post excision scalp cyst. Pt c/o; no concerns. Technical Maintenance Technician Required: Yes Technical Maintenance Technician Language: Relief Manager Services: Technical Maintenance Technician Offered & Declined Accompanied by: Child Allergies cetirizine [From [facility]] Allergy (Verified 05/01/24 10:29) Blister kiwi Allergy (Verified 05/01/24 10:29) Anaphylaxis seafood Allergy (Verified 05/01/24 10:29) Rash HPI HPI s/p Excision Scalp cyst: Details: She had undergone excision of a scalp cyst under local anesthesia last April 11, 2024. She tolerated the procedure well. She denies complaints at this time. [facility] Medical History Scalp cyst Morbid obesity Patient denies significant medical history Surgical History History of removal of cyst (~04/11/24) Social History Alcohol intake: never Patient Tobacco Use Status: Never used Tobacco Review of Systems Const Denies chills and Denies fever(s) Physical Exam Vital Signs: BMI result Body Mass Index 46.1 Const General: comfortable and no acute distress HEENT Other: Excision site on the up is well healed, not infected, sutures intact Assessment & Plan Assessment & Plan (1) Scalp cyst: Code(s): L72.9 - Follicular cyst of the skin and subcutaneous tissue, unspecified Category: Medical Plan: Status was excision. I removed his sutures. The wound edges remained apposed Her path report shows trichilemmal cyst. She can follow up on a p.r.n. basis. Coding Level of Care Code Global (14269) Diagnoses Scalp cyst L72.9
--- OUTSIDE RECORDS SUMMARY | 2024-05-01 11:59 | XMS_ITS | Clinical Summary ---
Demographics Address [address] [place] [address] Mobile Phone Home Phone Email Address Preferred Language es Marital Status Single Adventist Affiliation Unknown Race White Ethnic Group or Author Organization [employer] Address [address] [place] [address] 7t [place] [address] Support Name Relationship Address Phone Himanshu Small Spouse [address] [place] [address] Care Team Providers Care Mineral Surveying Technician Name Role Phone Tracy Storey MD [...] AM EDT): Will refer to a new crayon grader as patient was not given another appt, [...] Orders Only GENERIC EXTERNAL DATA DEPARTMENT Provider, [facility] External Data 03/28/2024 Telephone [facility] [address] [place] [address] Tracy Storey MD 03/27/2024 Orders Only [facility] [address] [place] [address] Tracy Storey MD Dermoid cyst of scalp (Primary Dx) 02/13/2024 Orders Only [facility] External Provider, [facility] from Last 3 Months Social History Tobacco [...] PM EST 04/12/2024 7:10 AM EST Eloisa [facility] - 04/15/2024 10:17 AM EST ----- ------- Name: Maria T Mayes ? Age/Sex: 33/F ? : 1990 Unit#: [id number] ?? Attend Dr: Doc Gilbert MD ?Re04/11/24 ?Status: DEP REF ? Location: HO.LNP ?Disch: ? ----- ------- SPEC : [id number] ?RECD: 04/12/24 ? STATUS: ??SOUT ? REQ NUM: [id number] ? OK: 04/11/24-1500 ? SUBM DR: Doc [...] ??The cyst contents are magaña-white and firm. ??Day Care Assistant sections are submitted for microscopic examination, 4 pieces in cassette [facility] Copies To: ?? Tracy Storey MD ?? [facility] ?? [address] ?? [place] [address] ?? [phone] ?? Doc Gilbert MD ?? [facility] General Surgeons ?? [address] [facility] ?? [place] [address] ?? [phone] ----- ------- Signed (signature on file) Rizwana Belington 04/15/24 1017 ? ----- ------- ? END OF REPORT ? us Generic External Data Provider LAB CYTOLOGY LUZ ELENA ORTEGA Final Result [facility] [address] [place] [address] [place] [address] [phone] * MR Shoulder w/o Contrast Right (02/13/2024 5:32 PM EST) Anatomical Region Laterality Modality Upper Extremities, Shoulder Right Magn etic Resonance 02/13/2024 5:32 PM EST Narrative 02/18/2024 11:43 PM EST ? [facility] ?[address] ?[place] [address] ? Magnetic Resonance Report ? Signed ? Patient: Joe Parker,Maria T E ?MR# ?? : [id number] ? : 1990 ?Acct:[id number] ? Age/Sex: 33 / F ?ADM Date: 11/26/24 ? Loc: HO.MRI ? Attending Dr: Henri Camacho MD ? Ordering Physician: Henri Camacho MD ?? Date of Service: 02/13/24 ?? Procedure(s): MR shoulder RT wo con ?? Accession Number(s): [id number] ? cc: Tracy Storey MD; Henri Camacho [...] ? DD/ ? TD/TT: 02/13/24 1749 ? Promotions Firm Accounts Manager: SABRINA ? Procedure Note Donsushila, Sabrina - 02/18/[address] [address] Magnetic Resonance Report Signed Patient: Maria T Mayes EMR# : [id number] : 1990Acct:[id number] Age/Sex: 33 / FADM Date: 02/13/24 Loc: HO.MRI Attending Dr: Henri Camacho MD Ordering Physician: Henri Camacho MD Date of Service: 02/13/24 Procedure(s): MR shoulder RT wo con Accession Number(s): [id number] cc: Tracy Storey MD; Henri Camacho MD [...] by Neftali Martini MD in OV> 02/18/24 0394 DD/ 31 TD/TT: 02/13/24 174 [employer] Accounts Manager: SABRINA [facility] External Provider IMG MRI PROCEDURES Edited [...] test SurePath(TM) specimens have been determined by [employer]. The modifications have not been cleared or approved by the FDA. This assay has been validated pursuant to the CLIA regulations and is used for clinical purposes. ?? For additional information, please refer to https://education.[facility].[employer]ger/faq/PZG708 (This link is being provided for information/ [...] was manually screened according to routine procedures. Cray Fishing Hand: SEE COMMENT CONVERTED LEGACY LABS Comment: MANSI, CT(ASCP) CT screening location: [address] ??[address] HPV nRNA E6/E7 Not Detected Not Detected CONVERTED LEGACY LABS Comment: Methodology: Electrician Bus-Mediated Amplification This assay detects E6/E7 viral messenger RNA (mRNA) from 14 high-risk HPV types (16,18,31,33,35,39,45,51,52,56,58,59,66,68). ? Cervical sources are required for HPV testing. If a vaginal source from a patient who has had a total hysterectomy with removal of cervix was ?? submitted, please contact the testing laboratory for alternative testing options. ?? For additional information, please refer to http://[employer].Yeahka/faq/DYB341j9 (This link if provided for information/ educational [...] of this assay have been determined by [employer]. The modifications have not been cleared or approved by the FDA. This assay has been validated pursuant to the CLIA regulations and is used for clinical purposes. ?? For additional information, please refer to http://education.[employer]/ faq/Trichomonastma (This link is being provided for information/ educational purposes only.) ?? 12/20/2021 Tracy Storey MD LAB PATHOLOGY ORDERABLES Final Result Performing Organization Address [facility]/ZIP Co de Phone Number CONVERTED LEGACY LABS [...] liver disease. LDL Cholesterol Calculated 72 mg/dl [facility] Comment: Desirable LDL: ? less [...] Final Result [facility] [address] from Last 3 Months or Most Recently Relevant to Health Maintenance Insurance * Guarantor: Maria T Mayes Account Type Relation to Patient Date of Phone Billing Address Personal/Family Self [address] [place] [address] [place] [address] [facility] MEDICAID STAND ADULT * Guarantor: Maria T Mayes Account Type Relation to Patient Date of Phone Billing Address Personal/Family Self [address] [place] [address] * Guarantor: Maria T Mayes Account Type Relation to Patient Date of Phone Billing Address Personal/Family Self [address] [place] [address] * Guarantor: Maria T Mayes Account Type Relation to Patient Date of Phone Billing Address Personal/Family Self [address] [place] [address] Care Teams Mineral Surveying Technician Relationship Specialty Start Date End Date Tracy Storey MD [address] [place] [address] PCP - General Family Medicine 03/01/19
--- OUTSIDE RECORDS SUMMARY | 2024-05-01 11:59 | XMS_ITS | Encounter Summary ---
Demographics Address [address] [place] [address] Mobile Phone Home Phone Email Address Preferred Language es Marital Status Single Uatsdin Affiliation Unknown Race White Ethnic Group or Author Organization [employer] Address [address] [place] [address] 7t [place] [address] Support Name Relationship Address Phone Himanshu Small Spouse [address] [place] [address] Care Team Providers Care Hydroelectric Station Operator Chief Name Role Phone Tracy Storey MD Primary Care Provider + Reason for Visit * Reason Comments Med Refill Encounter Details Date Type Department Care Team ([facility] st Contact Info) Description 06/28/2022 Refill [facility] [address] [place] [address] Tracy Storey MD [address] [place] [address] Dysfunction of right eustachian tube Social History [...] tube documented in this encounter Care Teams Hydroelectric Station Operator Chief Relationship Specialty Start Date End Date Tracy Storey MD [address] [place] [address] PCP - General Family Medicine 03/01/19 documented as of this encounter
--- OUTSIDE RECORDS SUMMARY | 2024-05-01 11:59 | XMS_ITS | Encounter Summary ---
Demographics Address [address] [facility] [address] [place] [address] Mobile Phone Home Phone Email Address Preferred Language es Marital Status Single Christian Affiliation Unknown Race White Ethnic Group or Author Organization [employer] Address [address] [place] [address] 7t [place] [address] Support Name Relationship Address Phone Himanshu Small Spouse [address] [place] [address] Care Team Providers Care Cutter And Paster Press Clippings Name Role Phone Tracy Storey MD Primary Care Provider + Encounter Details Date Type Department Care Team (Late st Contact Info) Description 04/14/2022 Telephone [facility] [address] [place] [address] Tracy Storey MD [address] [place] [address] Social History Tobacco Use Types Packs/Day Years [...] on filedocumented in this encounter Care Teams Cutter And Paster Press Clippings Relationship Specialty Start Date End Date Tracy Storey MD [address] [place], [place] [phone] PCP - General Family Medicine 03/01/19 documented as of this encounter
--- OUTSIDE RECORDS SUMMARY | 2024-05-01 11:59 | XMS_ITS | Encounter Summary ---
Demographics Address [address] [facility] [address] [place] [address] Mobile Phone Home Phone Email Address Preferred Language es Marital Status Single Yarsanism Affiliation Unknown Race White Ethnic Group or Author Organization [employer] Address [address] [place] [address] Support Name Relationship Address Phone Himanshu Small Spouse [address] [facility] [address] [place] [address] Care Team Providers Care Licensed Club Manager Name Role Phone Tracy Storey MD Primary Care Provider + Encounter Details Date Type Department Care Team (Late st Contact Info) Description 01/03/2024 Orders Only [facility] [address] [place] [address] Anthony Stearns MD [address] [place] [address] Social History Tobacco Use Types Packs/Day Years [...] on filedocumented in this encounter Care Teams Licensed Club Manager Relationship Specialty Start Date End Date Tracy Storey MD [address] [place] [address] PCP - General Family Medicine 03/01/19 documented as of this encounter
--- OUTSIDE RECORDS SUMMARY | 2024-05-01 12:00 | XMS_ITS | Encounter Summary ---
Demographics Address [address] [place] [address] Mobile Phone Home Phone Email Address Preferred Language es Marital Status Single Adventist Affiliation Unknown Race White Ethnic Group or Author Organization [employer] Address [address] [place] [address] Support Name Relationship Address Phone Himanshu Small Spouse [address] [place] [address] Care Team Providers Care Level Glass Forming Machine Operator Name Role Phone Tracy Storey [...] 3:00 PM EST 04/12/2024 7:10 AM EST [facility]S - 04/15/2024 10:17 AM EST ----- ------- Name: Maria T Mayes ? Age/Sex: 33/F ? : 1990 Unit#: [id number] ?? Attend Dr: Doc Gilbert MD ?Re04/11/24 ?Status: DEP REF ? Location: HO.LNP ?Disch: ? ----- ------- SPEC : [id number] ?RECD: 04/12/24 ? STATUS: ??SOUT ? REQ NUM: [id number] ? OK: 04/11/24-1500 ? SUBM DR: Doc [...] ??The cyst contents are magaña-white and firm. ??Peoplesoft Hr Developer sections are submitted for microscopic examination, 4 pieces in cassette [facility] Copies To: ?? Tracy Storey MD ?? [facility] ?? [address] ?? [place] [address] ?? [phone] ?? Doc Gilbert MD ?? [facility] General Surgeons ?? [address] ?? [place] [address] ?? [phone] ----- ------- Signed (signature on file) Rizwana Archer 04/15/24 1017 ? ----- ------- ? END OF REPORT ? us Generic External Data Provider LAB CYTOLOGY ORDE SHANNON Final Result [facility] [address] [place] [address] [phone] documented in this encounter Visit Diagnoses Not on filedocumented in this encounter Care Teams Level Glass Forming Machine Operator Relationship Specialty Start Date End Date Tracy Storey MD [address] [place] [address] PCP - General Family Medicine 03/01/19 documented as of this encounter
== END 2024-05-01 11:04 | disposition home or self-care (01) ==
PROVIDERS: Visit Provider Surgery
DX: L72.9 Follicular cyst of the skin and subcutaneous tissue, unspecified (principal)
CPT/HCPCS: 99024

== ENCOUNTER → 2024-05-01 10:08 | Outpatient (BNVA) | payer MEDICAID, SELFPAY | PROVIDERS: Visit Provider Surgery | DX: Z09 Encounter for follow-up examination after completed treatment for conditions other than malignant neoplasm (principal); Z87.2 Personal history of diseases of the skin and subcutaneous tissue | CPT/HCPCS: 99212 ==